=== PATIENT | male | born 1980 | race Caucasian/White ===

== ENCOUNTER 2017-03-15 13:43 | Observation (INO) | payer OTHER ==
[~2017-03-15] VITALS: Ht 193 cm; Wt 122.0 kg
[~2017-03-15 13:43] MED LIST: ACET-1311 PO; ALBU1AER9 INH; CLID5CAP PO; CLN150 PO; FLM4 PO; MAGN1TAB19 PO; MONT1TAB3 PO; OMEP40CA PO; TNR25 PO; VENL150T33 PO
[2017-03-15] MEDS ORDERED: VNTHFA/IN INH (15:03)
[2017-03-15] MEDS ORDERED: VENL75CA PO (15:03)
[2017-03-15] MEDS ORDERED: VENL150C PO (15:03)
[2017-03-15] MEDS ORDERED: DEXL60CA4 PO (15:03)
[2017-03-15] MEDS ORDERED: SULI200T4 PO (15:03)
[2017-03-15] MEDS ORDERED: ELUX1TAB2 PO (15:03)
[2017-03-15] MEDS ORDERED: CETITAB27 PO (15:03)
[2017-03-15] MEDS ORDERED: MAGN400T6 PO (15:03)
[2017-03-15 15:26] LABS: BASO % 0.4 %; BASO ABS # 0.04 K/uL (0-0.2); COMPLETE YES; EOS % 1.5 %; HEMATOCRIT 46.1 % (42-52); IG% 0.7 %; LYMPH % 27.4 %; LYMPH ABS # 2.74 K/uL (1.2-3.4); MEAN CELL VOLUME 93.9 fL (80-100); MEAN CORPUSCULAR HGB CONC 34.1 g/dl (32-36); MEAN PLATELET VOLUME 10.5 fL (7.4-10.4); MONO % 6.9 %; NEUT % 63.1 %; PLATELET COUNT 203 K/uL (130-400); RED BLOOD COUNT 4.91 M/uL (4.7-6.1)
--- NOTE | 2017-03-15 15:29 | EMERGENCY ROOM VISIT NOTE ---
History First contact with patient: 14:41 Chief Complaint: CHEST PAIN Stated Complaint: CHEST PAIN, SOB-CATHERIZATION SCHEDULED FOR 03/16 Nursing Triage Summary: Pt reports pain that "moves all around chest" since this morning. Dizzy, sob, "heart rate all over the place." Pt states scheduled for a cardiac cath tomorrow. Pt states head injury in 2013. History of Present Illness The patient is a 36 year old male who presents to the Emergency Room via private vehicle with complaints of "chest pain, shortness of breath test catheterization scheduled for 428". The patient has a history of TBI, and is believed to have autonomic dysfunction. He is scheduled for cardiac catheterization tomorrow at 7-[address] Gordillo the electrical inspector. The patient today woke up with increasing shortness of breath, and increasing heart rate with exertion. He was at physical therapy today, and he was found to be tachycardic at 135, and it would drop to 100 with his pulse ox to 90. He notes that with exertion today therapy his heart rate increased to 155 and 156. The patient states that he does not feel well, and is experiencing pain radiating into his neck. He has a headache, which is normal for him for the past 2-3 years. He follows in [place] for history of brain injury. It was found that he does have right ventricular enlargement, and is scheduled for the cardiac cath tomorrow for further evaluation and management of this. He does have a history of pulmonary embolism. The patient states an as verified by his , that earlier today he had trouble speaking, and when he went to walk around 11:30 AM he felt very weak in his legs, and very ill. The patient notes that he is also experiencing chest pain, that is worse with exertion. His heart rate also increases with exertion, but at times will decrease. He last ate today around 12:30 PM. Review of Systems A complete 10-point Review of Systems was discussed with the patient, with pertinent positives and negatives listed in the History of Present Illness. All remaining Review of Systems questions can be considered negative unless otherwise specified. Past Medical/Surgical History Medical Problems: (1) Acute bronchitis (2) Asthma (3) Chest pain (4) Intractable abdominal pain (5) Kidney stones (6) Lower GI bleed (7) Pneumonia (8) Pulmonary embolism Family History Cancer Diabetes mellitus Gallbladder disease Heart disease Hypertension Kidney stone Social History Smoking Status: Never Smoker Alcohol Use: none Drug Use: none Marital Status: Housing Status: lives with family Occupation Status: employed Current/Historical Medications Scheduled Atenolol (Atenolol), 25 TAB PO BID Dexlansoprazole (Dexilant), 60 MG PO QAM Eluxadoline (Viberzi), 100 MG PO BID Magnesium Oxide (Mag-Ox), 800 MG PO QPM Magnesium Oxide (Mg Supplement (Magnesium Oxide), 800 MG PO HS Montelukast Sodium (Singulair), 10 MG PO QAM Venlafaxine Hcl (Effexor Xr), 300 MG PO DAILY Venlafaxine Hcl (Effexor Xr), 75 MG PO DAILY Scheduled PRN Albuterol Hfa (Ventolin Hfa), 2 PUFFS INH Q6H PRN for SOB/Wheezing Cetirizine/Pseudoephedrine (Zyrtec-D Er 5MG/120MG), 1 TAB PO UD PRN for ALLERGIES Sulindac (Clinoril), 200 MG PO BID PRN for PRN Allergies Coded Allergies: Topiramate (Unverified Allergy, Unknown, UNKNOWN, 03/15/17) Valproic Acid (Verified Adverse Reaction, Unknown, ELEVATED LIVER ENZYMES , 03/15/17) Physical Exam Vital Signs Date Time Temp Pulse Resp B/P Pulse Ox O2 Delivery O2 Flow Rate FiO2 03/15/17 19:40 90 18 141/80 98 Room Air 03/15/17 18:23 136 98 Room Air 03/15/17 18:09 86 03/15/17 17:37 129/72 03/15/17 17:25 94 14 99 03/15/17 16:50 92 15 98 03/15/17 16:31 124/78 03/15/17 16:20 96 23 96 03/15/17 16:15 94 20 128/73 97 03/15/17 15:47 171/76 03/15/17 15:31 108/71 03/15/17 15:25 100 21 98 03/15/17 15:20 95 19 96 03/15/17 15:15 91 19 96 03/15/17 15:10 93 25 97 03/15/17 15:05 94 17 97 03/15/17 15:00 100 13 100 03/15/17 14:15 102 20 114/77 95 Room Air 03/15/17 14:15 96 Room Air 03/15/17 14:10 101 03/15/17 13:47 36.5 109 20 147/70 100 Room Air Physical Exam VITAL SIGNS - Vital signs and nursing notes were reviewed. Afebrile, hypertensive 147/70, tachycardic at a rate of 109 bpm and is saturating well on room air 100%. GENERAL -36-year-old male appearing his stated age who is in no acute distress. Communicates well with provider and answers questions appropriately. SKIN - Without rashes. No petechial rashes. HEAD - NC/AT. No evidence of trauma. EYES - PERRL with EOMI bilaterally. Sclera anicteric. Palpebral conjunctiva pink and moist with no injection noted. EARS - No deformities of external structures noted on gross examination bilaterally. No pain elicited with palpation of the tragus bilaterally. External auditory canals without discharge or otorrhea. Tympanic membranes pearly francois without retraction or bulging. No fluid or purulent material visualized behind the TM. Handle of malleus, umbo, cone of light, pars tensa/ flaccid all easily visualized. NOSE - Midline and without cyanosis. No epistaxis or purulent drainage noted. Septum midline without deviation or septal hematoma noted. MOUTH/OROPHARYNX - Without perioral cyanosis. Buccal mucosa pink and moist and without leukoplakia. Tongue midline with equal elevation of palate bilaterally. No tonsillar hypertrophy, erythema, or exudates noted. Fair dentition noted. NECK - Neck with FROM. Supple to palpation. No lymphadenopathy noted. No nuchal rigidity. No meningeal signs. LUNGS - Chest wall symmetric without accessory muscle use, intercostals retractions, or central cyanosis. Normal vesicular breath sounds CTA B/L. No wheezes, rales, or rhonchi appreciated. CARDIAC - RRR with S1/S2. No murmur, rubs, or gallops appreciated. ABDOMEN - Abdominal contour without pulsations or visible masses. BS normoactive all four quadrants. No tenderness, palpable masses, hepatosplenomegaly, or ascites noted. EXTREMITIES - No clubbing or peripheral cyanosis. No pretibial edema present. +5 /5 strength noted in UE/LE bilaterally. NEUROLOGIC - Cranial nerves II through XII grossly intact. Sensory intact to light touch throughout. PSYCH - A&Ox3 and cooperates fully with examiner. Pt is very pleasant and interacts well with examiner. Medical Decision & Procedures ER Provider Diagnostic Interpretation: CT HEAD WITHOUT CONTRAST (CT) CLINICAL HISTORY: Stroke COMPARISON STUDY: No previous studies for comparison. TECHNIQUE: Axial CT of the brain is performed from the vertex to the skull base. IV contrast was not administered for this examination. CT DOSE: 580.48 mGy.cm FINDINGS: No intra or extra-axial mass lesions are visualized. There is no CT evidence of acute cortical infarction. There is no evidence of midline shift. There is no acute hemorrhage. No calvarial fractures are visualized. And equivocal extra-axial cystic lesion at the level of the left pontomedullary junction, likely represents volume averaging artifact There is no evidence of pathologic ventricular dilatation. There is no evidence of acute sinusitis IMPRESSION: Probably normal noncontrast head CT. If symptoms persist, an MRI the brain should be considered in follow-up. CHEST ONE VIEW PORTABLE HISTORY: Dyspnea COMPARISON: Chest 02/05/2017. FINDINGS: No pneumothorax. There are low lung volumes. The heart is normal in size. Bibasilar linear densities favor subsegmental atelectasis. This is not significantly changed. Slight prominence of the perihilar interstitial markings. This could be technical. No new focal lung consolidations to suggest pneumonia. No evidence for pulmonary edema. IMPRESSION: No change from the prior study. Prominence of the perihilar interstitial markings may be technical. Electronically signed by: Ari Chavira M.D. 03/15/2017 3:48 PM Dictated Date/Time: 03/15/2017 3:[address] ANGIOGRAM OF THE CHEST CLINICAL HISTORY: Atypical chest pain. Shortness of breath. COMPARISON STUDY: 12/08/2015 TECHNIQUE: Following the IV administration of 98 mL of Optiray-320, CT angiogram of the thorax was performed from the thoracic inlet to the lung bases utilizing the pulmonary embolus protocol. Images are reviewed in the axial, sagittal, and coronal planes. IV contrast was administered without complication. MIP imaging was performed. CT DOSE: 770.91 mGy.cm FINDINGS: There are borderline enlarged mediastinal and hilar lymph nodes. There is also a borderline enlarged lymph node at the esophagogastric junction. The lymph nodes appear larger on the prior November 2015 study. It is therefore conceivable that they are pathologic. Follow-up is recommended. There was no evidence of thoracic aortic dilatation. There were no pulmonary artery filling defects to indicate acute pulmonary embolism. No pleural effusions are visualized. There was no evidence of focal pulmonary consolidation. IMPRESSION: 1. No CT evidence of acute pulmonary embolism 2. Interval development of multiple borderline enlarged mediastinal, hilar and axillary lymph nodes. Close follow-up is recommended as these nodes could be pathologic. 3. No evidence of focal pulmonary consolidation Electronically signed by: Bossman Mathis M.D. 03/15/2017 5:12 PM Dictated Date/Time: 03/15/2017 5:07 PM Laboratory Results 03/15/17 14:17 Red Blood Count 4.91, Mean Corpuscular Volume 93.9, Mean Corpuscular Hemoglobin 32.0, Mean Corpuscular Hemoglobin Concent 34.1, Mean Platelet Volume 10.5, Neutrophils (%) (Auto) 63.1, Lymphocytes (%) (Auto) 27.4, Monocytes (%) (Auto) 6.9, Eosinophils (%) (Auto) 1.5, Basophils (%) (Auto) 0.4, Neutrophils # (Auto) 6.31, Lymphocytes # (Auto) 2.74, Monocytes # (Auto) 0.69, Eosinophils # (Auto) 0.15, Basophils # (Auto) 0.04 03/15/17 14:17 Test 03/15/17 14:17 03/15/17 15:17 03/15/17 15:21 03/15/17 16:18 White Blood Count 10.00 K/uL (4.8-10.8) Red Blood Count 4.91 M/uL (4.7-6.1) Hemoglobin 15.7 g/dL (14.0-18.0) Hematocrit 46.1 % (42-52) Mean Corpuscular Volume 93.9 fL (80-100) Mean Corpuscular Hemoglobin 32.0 pg (25-34) Mean Corpuscular Hemoglobin Concent 34.1 g/dl (32-36) Platelet Count 203 K/uL (130-400) Mean Platelet Volume 10.5 fL (7.4-10.4) Neutrophils (%) (Auto) 63.1 % Lymphocytes (%) (Auto) 27.4 % Monocytes (%) (Auto) 6.9 % Eosinophils (%) (Auto) 1.5 % Basophils (%) (Auto) 0.4 % Neutrophils # (Auto) 6.31 K/uL (1.4-6.5) Lymphocytes # (Auto) 2.74 K/uL (1.2-3.4) Monocytes # (Auto) 0.69 K/uL (0.11-0.59) Eosinophils # (Auto) 0.15 K/uL (0-0.5) Basophils # (Auto) 0.04 K/uL (0-0.2) RDW Standard Deviation 45.3 fL (36.4-46.3) RDW Coefficient of Variation 13.1 % (11.5-14.5) Immature Granulocyte % (Auto) 0.7 % Immature Granulocyte # (Auto) 0.07 K/uL (0.00-0.02) Prothrombin Time 10.3 SECONDS (9.0-12.0) Prothromb Time International Ratio 1.0 (0.9-1.1) Activated Partial Thromboplast Time 25.7 SECONDS (21.0-31.0) Partial Thromboplastin Ratio 1.0 Anion Gap 4.0 mmol/L (3-11) Est Creatinine Clear Calc Drug Dose 107.2 ml/min Estimated GFR () 75.4 Estimated GFR (Non- 65.1 BUN/Creatinine Ratio 7.5 (10-20) Calcium Level 9.2 mg/dl (8.5-10.1) Creatine Kinase MB 1.7 ng/ml (0.5-3.6) Creatine Kinase MB Ratio 0.3 (0-3.0) Bedside Troponin I 0.010 ng/ml (0-0.045) JG-Jms-N-Type Natriuretic Peptide < 15 pg/ml (0-450) Bedside Glucose 100 mg/dl (70-99) Urine Color YELLOW Urine Appearance CLEAR (CLEAR) Urine pH 7.0 (4.5-7.5) Urine Specific [place] 1.011 (1.000-1.030) Urine Protein NEG (NEG) Urine Glucose (UA) NEG (NEG) Urine Ketones NEG (NEG) Urine Occult Blood NEG (NEG) Urine Nitrite NEG (NEG) Urine Bilirubin NEG (NEG) Urine Urobilinogen NEG (NEG) Urine Leukocyte Esterase NEG (NEG) Urine Opiates Screen NEG (NEG) Urine Methadone, Qualitative NEG (NEG) Urine Barbiturates NEG (NEG) Urine Phencyclidine (PCP) Level NEG (NEG) Ur Amphetamine/Methamphetamine NEG (NEG) MDMA (Ecstasy) Screen NEG (NEG) Urine Benzodiazepines Screen POS (NEG) Urine Cocaine Metabolite NEG (NEG) Urine Marijuana (THC) NEG (NEG) Medications Administered Medications (Trade) Dose Ordered Sig/[place]asta Route Start Time Stop Time Status Last Admin Dose Admin Acetaminophen (Tylenol Tab) 500 mg NOW STAT PO 03/15/17 16:06 03/15/17 16:07 DC 03/15/17 16:13 500 MG Diphenhydramine HCl (Benadryl Inj) 25 mg NOW STAT IV 03/15/17 18:02 03/15/17 18:03 DC 03/15/17 19:34 25 MG Prochlorperazine Edisylate (Compazine Inj) 10 mg NOW STAT IV 03/15/17 18:02 03/15/17 18:03 DC 03/15/17 19:34 10 MG Acetaminophen (Tylenol Tab) 500 mg NOW STAT PO 03/15/17 18:02 03/15/17 18:03 DC 03/15/17 18:02 500 MG Medical Decision Patient was seen and evaluated as above. After obtaining a thorough history and physical examination IV access was initiated and the above workup was performed. There is concern because the patient and relate that he had sudden onset of lower extremity weakness/generalized body weakness, followed by speech troubles earlier with a history of TBI. He also is experiencing chest pain and shortness of breath. He is scheduled for a right sided cath tomorrow at 7 AM. Because of the TBI, and sudden onset of body weakness, headache as well as speech troubles I was concerned for potential stroke earlier in the day therefore did initiate a stroke workup. Emergency department as well as emergent cardiac and pulmonary causes. His cases were reviewed extensively from the past. He was noted to be tachycardic here, shortness of breath. Concern was for WA as well as PE initially. He did request something for pain, and declined IV morphine. He requested Tylenol. He was given 500 mg of Tylenol. He was reevaluated and the headache was worsening even after the CT scan of the head which revealed questionable artifact versus abnormality. He was then given Benadryl and Compazine, as the patient noted that he has had good relief of his headache with this in the past. I do this is a reasonable medication to provide him at this time. I do not believe an MRI needs to be performed in the emergency department, but did tell the patient that if symptoms persisted and MRI the brain may be warranted however he he have these as he follows up in [place] for the TBI. As noted, CT scan of the head does reveal a small questionable abnormality which was thoroughly discussed with the patient. This I do not believe is causing his symptoms at this time. I believe this is incidental. CBC reveals no leukocytosis or anemia. Coags within normal limits. PRP reveals normal electrolytes, total creatinine was elevated at 498. Troponin was 0.01. BNP is negative. Urine is unremarkable. Urine toxicology is positive for urine benzodiazepines. Chest x- ray does not reveal any significant abnormality however the patient does appear to be experiencing persistent tachycardia, with shortness of breath with minimal exertion. Benefits versus risk of obtaining a CTA of the chest was discussed with the patient, and the patient noted that he had had negative d- dimer is in the past yet had a pulmonary embolism history. I do believe that this time that the benefit of obtaining the scan outweighs the risk. CT scan results as above. Patient does have enlargement of lymph nodes of which she will need to be followed up for. Patient follows with Dr. Antunez. At this time his EKG does reveal a normal sinus rhythm rate of 92 bpm without ectopy or ischemic change. This was compared to EKG performed on December 08 no significant change was found. Because of the patient's persistent chest pain, dyspnea as well as he had 1 syncopal event here according to staff as well as had an episode of his tongue becoming rigid followed by his neck, and he is scheduled for early cardiac catheterization tomorrow I do believe that further evaluation and management overnight is warranted for his chest pain with continuation of a heart cath tomorrow. I did discuss the case with my attending , and subsequently the hospitalist. Please refer to further documentation regarding his stay. In evaluation treatment this patient the following differential diagnoses were entertained: WA, PE, TBI sequela, pericarditis, pneumonia, pneumothorax, hemothorax, lung cancer, among others. Impression Primary Impression: Chest pain Additional Impressions: Shortness of breath extra-axial cystic lesion at the level of the left pontomedullary on CT Departure Information Dispostion Admitted as an inpatient Condition FAIR Referrals Bhaskar Noble D.O. (PCP) Patient Instructions My [facility] Problem Qualifiers
[2017-03-15 15:36] LABS: PROTHROMBIN TIME (PATIENT) 10.3 SECONDS (9.0-12.0)
[2017-03-15 15:37] LABS: POINT OF CARE PRO-BNP < 15 pg/ml (0-450)
[2017-03-15 15:38] LABS: BUN/CREATININE RATIO 7.5 (10-20); CALCIUM 9.2 mg/dl (8.5-10.1); CREATININE 1.4 mg/dl (0.60-1.40); POTASSIUM 3.8 mmol/L (3.5-5.1)
[2017-03-15 15:42] LABS: CKMB/CK RATIO 0.3 (0-3.0)
--- NOTE | 2017-03-15 15:49 | DIAGNOSTIC IMAGING REPORT ---
CHEST ONE VIEW PORTABLE HISTORY: Dyspnea COMPARISON: Chest 02/05/2017. FINDINGS: No pneumothorax. There are low lung volumes. The heart is normal in size. Bibasilar linear densities favor subsegmental atelectasis. This is not significantly changed. Slight prominence of the perihilar interstitial markings. This could be technical. No new focal lung consolidations to suggest pneumonia. No evidence for pulmonary edema. IMPRESSION: No change from the prior study. Prominence of the perihilar interstitial markings may be technical. Electronically signed by: Ari Chavira M.D. 03/15/2017 3:48 PM Dictated Date/Time: 03/15/2017 3:45 PM
[2017-03-15] MEDS ORDERED: ACETAMINOPHEN 500 MG TAB PO STA ×2 (16:06→18:02)
--- NOTE | 2017-03-15 16:12 | DIAGNOSTIC IMAGING REPORT ---
CT HEAD WITHOUT CONTRAST (CT) CLINICAL HISTORY: Stroke COMPARISON STUDY: No previous studies for comparison. TECHNIQUE: Axial CT of the brain is performed from the vertex to the skull base. IV contrast was not administered for this examination. CT DOSE: 580.48 mGy.cm FINDINGS: No intra or extra-axial mass lesions are visualized. There is no CT evidence of acute cortical infarction. There is no evidence of midline shift. There is no acute hemorrhage. No calvarial fractures are visualized. And equivocal extra-axial cystic lesion at the level of the left pontomedullary junction, likely represents volume averaging artifact There is no evidence of pathologic ventricular dilatation. There is no evidence of acute sinusitis IMPRESSION: Probably normal noncontrast head CT. If symptoms persist, an MRI the brain should be considered in follow-up. Electronically signed by: Bossman Mathis M.D. 03/15/2017 4:11 PM Dictated Date/Time: 03/15/2017 4:07 PM
[2017-03-15 16:30] LABS: URINE APPEARANCE CLEAR (CLEAR); URINE BILIRUBIN NEG (NEG); URINE COLOR YELLOW; URINE NITRITE NEG (NEG); URINE SPECIFIC GRAVITY 1.011 (1.000-1.030); UROBILINOGEN NEG (NEG); ZZUR CULT IF INDIC CLEAN CATCH NO
[2017-03-15 16:32] LABS: MANUAL MICROSCOPIC REQUIRED? NO; REVIEW REQ? NO
[2017-03-15] MEDS ORDERED: OPTIRAY 320 IV PRN (16:45)
--- NOTE | 2017-03-15 17:13 | DIAGNOSTIC IMAGING REPORT ---
CT ANGIOGRAM OF THE CHEST CLINICAL HISTORY: Atypical chest pain. Shortness of breath. COMPARISON STUDY: 12/08/2015 TECHNIQUE: Following the IV administration of 98 mL of Optiray-320, CT angiogram of the thorax was performed from the thoracic inlet to the lung bases utilizing the pulmonary embolus protocol. Images are reviewed in the axial, sagittal, and coronal planes. IV contrast was administered without complication. MIP imaging was performed. CT DOSE: 770.91 mGy.cm FINDINGS: There are borderline enlarged mediastinal and hilar lymph nodes. There is also a borderline enlarged lymph node at the esophagogastric junction. The lymph nodes appear larger on the prior November 2015 study. It is therefore conceivable that they are pathologic. Follow-up is recommended. There was no evidence of thoracic aortic dilatation. There were no pulmonary artery filling defects to indicate acute pulmonary embolism. No pleural effusions are visualized. There was no evidence of focal pulmonary consolidation. IMPRESSION: 1. No CT evidence of acute pulmonary embolism 2. Interval development of multiple borderline enlarged mediastinal, hilar and axillary lymph nodes. Close follow-up is recommended as these nodes could be pathologic. 3. No evidence of focal pulmonary consolidation Electronically signed by: Bossman Mathis M.D. 03/15/2017 5:12 PM Dictated Date/Time: 03/15/2017 5:07 PM
[2017-03-15 17:15] LABS: BENZODIAZEPINE, URINE POS (NEG); COCAINE,URINE NEG (NEG); PHENCYCLIDINE, URINE NEG (NEG)
[2017-03-15] MEDS ORDERED: PROCHLORPERAZINE 5 MG/ML 2 ML VIAL IV STA (18:02)
[2017-03-15] MEDS ORDERED: DiphenhydrAMINE HCL 50 MG/ML VIAL IV STA (18:02)
[2017-03-15 19:58] VITALS: BP 130/74; PULSE 80; TEMP 37.2; O2SAT 98; Ht 193 cm; Wt 122.0 kg
[2017-03-15] MEDS ORDERED: NITROGLYCERIN 0.4 MG SL PER TAB CHARGE SL PRN (20:00)
[2017-03-15] MEDS ORDERED: MAGNESIUM HYDROXIDE SUSP 30 ML UDC PO PRN (20:00)
[2017-03-15] MEDS ORDERED: HEPARIN SOD 5000 UNIT/0.5 ML CARP SQ SCH (20:00)
[2017-03-15] MEDS ORDERED: POLYETHYLENE (MIRALAX) 17 GM PACK PO PRN (20:00)
[2017-03-15] MEDS ORDERED: ALUMINUM/MAGNESIUM/SIMETH (MAALOX MAX) 30 ML UDC PO PRN (20:00)
[2017-03-15] MEDS ORDERED: ONDANSETRON INJ 2 MG/ML 2 ML VIAL IV PRN (20:00)
[2017-03-15] MEDS ORDERED: ACETAMINOPHEN 325 MG TAB PO PRN (20:00)
[2017-03-15] MEDS ORDERED: ALBUTEROL HFA 8 GM INHALER INH PRN (20:00)
--- NOTE | 2017-03-15 20:23 | History and Physical ---
History & Physical Date & Time of Service: Mar 15, 2017 at 20:08 Chief Complaint: Chest Pain, Sob-Catherization Scheduled For 03/16 Primary Care Physician: Bhaskar Noble D.O. History of Present Illness Source: patient 37 y/o M w/Hx TBI, autonomic dysfunction, chronic chest discomfort and SOB. For 3 years he has had episodes of tachycardia associated with chest pain and light headedness. He regularly becomes SOB with exertion and states that his heart rate increases out of proportion to his degree of activity. He feels as though his symptoms are occuring with greater severity and frequency. He has had a normal stress test in the past. The pt was scheduled for an elective R and L heart cath 03/16. He was having worsening discomfort and arrived at the ER therefore. As he is having active symptoms and is scheduled for an AM cath, this will be performed in the inpatient setting and he will be observed overnight on telemetry. Past Medical/Surgical History Medical Problems: (1) Acute bronchitis Status: Resolved (2) Asthma Status: Chronic (3) Kidney stones Status: Resolved (4) Lower GI bleed Status: Resolved (5) Pneumonia Status: Resolved (6) Pulmonary embolism Status: Resolved 7) TBI 8) Autonomic dysfunction Family History Cancer Diabetes mellitus Gallbladder disease Heart disease Hypertension Kidney stone Social History Smoking Status: Never Smoker Drug Use: none Marital Status: Occupational Status: employed Allergies Coded Allergies: Topiramate (Unverified Allergy, Unknown, UNKNOWN, 03/15/17) Valproic Acid (Verified Adverse Reaction, Unknown, ELEVATED LIVER ENZYMES , 03/15/17) Home Medications Scheduled Atenolol (Atenolol), 25 TAB PO BID Dexlansoprazole (Dexilant), 60 MG PO QAM Eluxadoline (Viberzi), 100 MG PO BID Magnesium Oxide (Mag-Ox), 800 MG PO QPM Magnesium Oxide (Mg Supplement (Magnesium Oxide), 800 MG PO HS Montelukast Sodium (Singulair), 10 MG PO QAM Venlafaxine Hcl (Effexor Xr), 300 MG PO DAILY Venlafaxine Hcl (Effexor Xr), 75 MG PO DAILY Scheduled PRN Albuterol Hfa (Ventolin Hfa), 2 PUFFS INH Q6H PRN for SOB/Wheezing Cetirizine/Pseudoephedrine (Zyrtec-D Er 5MG/120MG), 1 TAB PO UD PRN for ALLERGIES Sulindac (Clinoril), 200 MG PO BID PRN for PRN Review of Systems Constitutional: No chills, No fever, No sweats Eyes: No eye pain, No worsening of vision ENT: No hearing loss, No nasal symptoms, No unusual epistaxis Respiratory: + dyspnea at rest, + dyspnea on exertion, + shortness of breath, No cough, No sputum, No wheezing Cardiovascular: + chest pain, + palpitations, No PND, No edema, No orthopnea Abdomen: No nausea, No pain, No vomiting Musculoskeletal: No joint pain, No muscle pain Genitourinary - Male: No dysuria, No hematuria, No urinary frequency, No urinary urgency Neurologic: + problem reported (light headed with CP or tachycardia), No memory loss, No paralysis, No weakness Psychiatric: No depression symptoms Endocrine: No fatigue Hematologic / Lymphatic: No abnormal bleeding/bruising Integumentary: No rash Allergic / Immunologic: No environmental allergies Physical Exam Vital Signs Date Time Temp Pulse Resp B/P Pulse Ox O2 Delivery O2 Flow Rate FiO2 03/15/17 18:23 136 98 Room Air 03/15/17 18:09 86 03/15/17 17:37 129/72 03/15/17 17:25 94 14 99 03/15/17 16:50 92 15 98 03/15/17 16:31 124/78 03/15/17 16:20 96 23 96 03/15/17 16:15 94 20 128/73 97 03/15/17 15:47 171/76 03/15/17 15:31 108/71 03/15/17 15:25 100 21 98 03/15/17 15:20 95 19 96 03/15/17 15:15 91 19 96 03/15/17 15:10 93 25 97 03/15/17 15:05 94 17 97 03/15/17 15:00 100 13 100 03/15/17 14:15 102 20 114/77 95 Room Air 03/15/17 14:15 96 Room Air 03/15/17 14:10 101 03/15/17 13:47 36.5 109 20 147/70 100 Room Air General Appearance: WD/WN, no apparent distress Head: normocephalic, atraumatic Eyes: normal inspection, EOMI ENT: normal ENT inspection, pharynx normal Neck: supple, no JVD Respiratory/Chest: chest non-tender, lungs clear, normal breath sounds, no respiratory distress, no accessory muscle use Cardiovascular: regular rate, rhythm, no edema, no gallop, no JVD, no murmur, normal peripheral pulses Abdomen/GI: normal bowel sounds, non tender, soft Back: normal inspection, no CVA tenderness, no muscle spasm Extremities/Musculoskelatal: normal inspection, no calf tenderness, normal capillary refill, no pedal edema, normal range of motion 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, no motor/sensory deficits, alert, normal mood/affect, normal reflexes, oriented x 3 Skin: normal color, warm/dry, no rash Diagnostics Laboratory Results Results Past 24 Hours Test 03/15/17 14:17 03/15/17 15:17 03/15/17 15:21 03/15/17 16:18 Range/Units White Blood Count 10.00 4.8-10.8 K/uL Red Blood Count 4.91 4.7-6.1 M/uL Hemoglobin 15.7 14.0-18.0 g/dL Hematocrit 46.1 42-52 % Mean Corpuscular Volume 93.9 80-100 fL Mean Corpuscular Hemoglobin 32.0 25-34 pg Mean Corpuscular Hemoglobin Concent 34.1 32-36 g/dl Platelet Count 203 130-400 K/uL Mean Platelet Volume 10.5 7.4-10.4 fL Neutrophils (%) (Auto) 63.1 % Lymphocytes (%) (Auto) 27.4 % Monocytes (%) (Auto) 6.9 % Eosinophils (%) (Auto) 1.5 % Basophils (%) (Auto) 0.4 % Neutrophils # (Auto) 6.31 1.4-6.5 K/uL Lymphocytes # (Auto) 2.74 1.2-3.4 K/uL Monocytes # (Auto) 0.69 0.11-0.59 K/uL Eosinophils # (Auto) 0.15 0-0.5 K/uL Basophils # (Auto) 0.04 0-0.2 K/uL RDW Standard Deviation 45.3 36.4-46.3 fL RDW Coefficient of Variation 13.1 11.5-14.5 % Immature Granulocyte % (Auto) 0.7 % Immature Granulocyte # (Auto) 0.07 0.00-0.02 K/uL Prothrombin Time 10.3 9.0-12.0 SECONDS Prothromb Time International Ratio 1.0 0.9-1.1 Activated Partial Thromboplast Time 25.7 21.0-31.0 SECONDS Partial Thromboplastin Ratio 1.0 Sodium Level 141 136-145 mmol/L Potassium Level 3.8 3.5-5.1 mmol/L Chloride Level 105 98-107 mmol/L Carbon Dioxide Level 32 21-32 mmol/L Anion Gap 4.0 3-11 mmol/L Blood Urea Nitrogen 10 7-18 mg/dl Creatinine 1.40 0.60-1.40 mg/dl Est Creatinine Clear Calc Drug Dose 107.2 ml/min Estimated GFR () 75.4 Estimated GFR (Non- 65.1 BUN/Creatinine Ratio 7.5 10-20 Random Glucose 91 70-99 mg/dl Calcium Level 9.2 8.5-10.1 mg/dl Total Creatine Kinase 498 39-308 U/L Creatine Kinase MB 1.7 0.5-3.6 ng/ml Creatine Kinase MB Ratio 0.3 0-3.0 Bedside Troponin I 0.010 0-0.045 ng/ml [id number] Natriuretic Peptide < 15 0-450 pg/ml Bedside Glucose 100 70-99 mg/dl Urine Color YELLOW Urine Appearance CLEAR CLEAR Urine pH 7.0 4.5-7.5 Urine Specific [place] 1.011 1.000-1.030 Urine Protein NEG NEG Urine Glucose (UA) NEG NEG Urine Ketones NEG NEG Urine Occult Blood NEG NEG Urine Nitrite NEG NEG Urine Bilirubin NEG NEG Urine Urobilinogen NEG NEG Urine Leukocyte Esterase NEG NEG Urine Opiates Screen NEG NEG Urine Methadone, Qualitative NEG NEG Urine Barbiturates NEG NEG Urine Phencyclidine (PCP) Level NEG NEG Ur Amphetamine/Methamphetamine NEG NEG MDMA (Ecstasy) Screen NEG NEG Urine Benzodiazepines Screen POS NEG Urine Cocaine Metabolite NEG NEG Urine Marijuana (THC) NEG NEG Diagnostic Radiology CTA 1. No CT evidence of acute pulmonary embolism 2. Interval development of multiple borderline enlarged mediastinal, hilar and axillary lymph nodes. Close follow-up is recommended as these nodes could be pathologic. 3. No evidence of focal pulmonary consolidation Normal EKG Impression Assessment and Plan 37 y/o M w/Hx TBI, autonomic dysfunction, chronic chest discomfort and SOB. For 3 years he has had episodes of tachycardia associated with chest pain and light headedness. He regularly becomes SOB with exertion and states that his heart rate increases out of proportion to his degree of activity. He feels as though his symptoms are occuring with greater severity and frequency. He has had a normal stress test in the past. The pt was scheduled for an elective R and L heart cath 03/16. He was having worsening discomfort and arrived at the ER therefore. As he is having active symptoms and is scheduled for an AM cath, this will be performed in the inpatient setting and he will be observed overnight on telemetry. 1) CP, palpitations, SOB - intermittent for 3 years - worsening Dr Gordillo consulted and will perform R and L cath in AM. Initial EKG is not consistent with ischemia and pt is thus far exhibiting a NSR on monitor. His CK is elevated however trop is WNL. We will provide IVF and repeat both in a few hours. One dose Heparin and ASA also provided. Judging by his symptoms he may benefit from an EP study eventually. He is receiving 25mg Atenolol daily. 2) SOB - occurs with exertion - will likely be evaluated for pulmonary hypertension on AM cath. Cont PRN albuterol. Full code - Heparin prophylaxis - total time for this admit including review of labs, meds, EKG, records - discussion with PT and ER attending 36 min Level of Care Telemetry Advanced Directives Existing Living Will: No Existing Power of Electric Mule Operator: No Resuscitation Status FULL RESUSCITATION VTE Prophylaxis VTE Risk Assessment Done? Y/N: Yes Risk Level: Low Given or contraindicated: Unfractionated heparin SQ
[2017-03-15] MEDS ORDERED: IV FLUIDS COMPLETED PRN (20:30)
[2017-03-15 20:45] VITALS: BP 130/74; PULSE 80; TEMP 37.2; O2SAT 98
[2017-03-15 21:00] VITALS: O2SAT 98
[2017-03-15] MEDS ORDERED: MAGNESIUM OXIDE 400 MG TAB PO SCH (21:00)
[2017-03-15] MEDS: NSS + 20MEQ KCL 1000ML 1,000 ML IV SCH (21:46)
[2017-03-15 23:52] VITALS: BP 116/65; PULSE 81; TEMP 36.9; O2SAT 96
[2017-03-16] VITALS (10 sets, daily range): BP systolic 103–119; BP diastolic 61–70; PULSE 68–88; TEMP 36.7–36.8; O2SAT 95–97
[2017-03-16] MEDS: NSS + 20MEQ KCL 1000ML 1,000 ML IV SCH (04:00)
[2017-03-16] MEDS ORDERED: NiCARDipine HCL INJ 2.5 MG/ML 10 ML AMP ONE (07:54)
[2017-03-16] MEDS ORDERED: FENTANYL CITRATE INJ 50 MCG/1 ML 2 ML VIAL ONE (07:55)
[2017-03-16] MEDS ORDERED: MIDAZOLAM HCL 1 MG/ML 2ML VIAL ONE ×2 (07:55→09:00)
[2017-03-16] MEDS ORDERED: HEPARIN SOD (PORCINE) 1000 UNIT/ML 10 ML VIAL ONE (07:55)
[2017-03-16] MEDS ORDERED: NITROGLYCERIN/D5W 100MCG/ML 20ML SYR ONE (07:56)
[2017-03-16] MEDS ORDERED: ASPIRIN 81 MG ECTAB PO SCH (09:00)
[2017-03-16] MEDS ORDERED: VENLAFAXINE HCL XR 150 MG CAPXR PO SCH (09:00)
[2017-03-16] MEDS ORDERED: VENLAFAXINE HCL XR 75 MG CAPXR PO SCH (09:00)
[2017-03-16] MEDS ORDERED: MONTELUKAST SOD 10 MG TAB PO SCH (09:00)
[2017-03-16] MEDS ORDERED: PANTOprazole SOD 40 MG TAB PO SCH (09:00)
--- NOTE | 2017-03-16 09:01 | CARDIOLOGY CONSULTATION ---
DATE OF CONSULTATION: 03/16/2017 REASON FOR CONSULTATION: Chest pain, shortness of breath. CONSULTATION REQUESTED BY: Dr. Galarza. HISTORY OF PRESENT ILLNESS: Mr. Angeles is a 36-year-old man with a history of traumatic brain injury with associated autonomic dysfunction including recurrent GI issues, prior PE in the setting of trauma, asthma, who was admitted with worsening shortness of breath and chest pain. The patient is followed by Dr. Antunez of pulmonary as an outpatient. He had been seeing him for episodes of hypoxia/desaturations on pulse ox in the setting of intermittent shortness of breath. He had undergone extensive workup which included a CTA which was negative except for some mild pulmonary nodules, V/Q scan which was negative for PE, a stress echo which was negative for significant ischemia. Next in his evaluation, the patient was to get a right heart catheterization today to further evaluate for possible pulmonary hypertension. Prior to that, yesterday he had recurrent episodes of similar chest pain and shortness of breath. These episodes all seemed to occur with exertion. He states he will start walking and he will acutely feel short of breath with some substernal right-sided chest pain. The pain can persist into rest. It is associated with palpitations and he states that his heart rate quickly jumps up when he begins exercising from normal up to the 120s, sometimes to the 150s. As a result of worsening symptoms, he presented to the ED yesterday. He was hemodynamically stable and satting at 100% on room air. He had no significant EKG changes. His troponins were negative overnight. A CTA of his chest was negative and a head CT was unremarkable. PAST MEDICAL HISTORY: 1. Traumatic brain injury. 2. Autonomic dysfunction with diarrhea and GI issues. 3. Prior kidney stones. 4. Pulmonary embolism in the setting of trauma. 5. Questionable GI bleed in the past. 6. History of prior pneumonia. 7. Asthma. 8. Allergic rhinitis. FAMILY HISTORY: No first-degree relatives with significant coronary artery disease. He has 5 brothers on his dad's side who all had coronary artery disease at young age including 1 brother who at age 38 from an [place]. SOCIAL HISTORY: He is a lifelong never smoker. He is . 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 Denies any significant alcohol or illicit drug use. ALLERGIES: HE IS ALLERGIC TO TOPAMAX AND VALPROIC ACID. HOME MEDICATIONS: Include atenolol 25 mg p.o. b.i.d., Dexilant, Viberzi, magnesium oxide, Singulair and venlafaxine. REVIEW OF SYSTEMS: Ten-point review of systems completed and otherwise negative other than listed in the HPI. PHYSICAL EXAMINATION: VITAL SIGNS: Temperature 36.7, pulse 76, blood pressure 119/70, satting 97% on room air. GENERAL: The patient appears comfortable, in no acute distress. HEENT: Sclerae are anicteric. Oropharynx is clear. Mucous membranes are moist. NECK: Supple. He has no lymphadenopathy. LUNGS: Clear to auscultation bilaterally. HEART: Regular rate and rhythm with no murmurs, rubs or gallops. ABDOMEN: Soft, nontender, nondistended, with positive bowel sounds. EXTREMITIES: Warm. He has no significant lower extremity edema. He has intact distal pulses including 2+ radial pulses bilaterally. SKIN: Shows no rashes or lesions. PSYCHIATRIC: He is alert and oriented and appropriate. LABORATORY DATA: White blood cell count 10, hemoglobin 15.7, platelets 203. INR 1.0. Sodium 141, potassium 3.8, BUN 10, creatinine of 1.4. NT-proBNP was less than 15. Two troponins were negative, less than 0.015. UA unremarkable. Urine drug screen positive only for benzodiazepines. IMAGING: Chest x-ray showed prominence of perihilar interstitial markings, but no acute cardiopulmonary process. Chest CTA showed no evidence of acute PE. There was borderline enlargement of mediastinal, hilar and axillary lymph nodes. No focal pulmonary consolidation. Head CT showed a probably normal noncontrast head CT. Prior cardiac workup included stress echo done on 02/05/2017 at [facility]. The patient exercised for 6 minutes, achieving a heart rate of 174, 94% of maximum predicted heart rate and 7 METs. He had no exercise-induced ST abnormalities. His LV was mildly thickened, but he had a preserved LV function with an EF of 60% at rest. He had an appropriate augmentation of LV function with stress and no regional wall motion abnormalities. EKG yesterday showed normal sinus rhythm with no significant ST abnormalities. IMPRESSION AND PLAN: 1. Atypical chest pain, periods of hypoxia. 2. Prior traumatic brain injury. 3. Palpitations. 4. Morbid obesity. 5. Family history of coronary artery disease in nonfirst-degree relatives. Mr. Angeles is here with repeated episodes of atypical chest pain and hypoxic episodes in the setting of palpitations. He has undergone extensive pulmonary workup thus far with Dr. Antunez, which has been largely unremarkable. Plan had been for right heart catheterization to evaluate for pulmonary hypertension today in the setting of previous PE. As the patient continues to have episodes of chest pain requiring him to be admitted overnight, feel that further evaluation is likely warranted of his coronary arteries and we will plan to proceed with right and left heart catheterization today. Further recommendations pending findings of this test. Assuming if tests unremarkable, may need additional ambulatory monitoring to evaluate for arrhythmia. Thank you for allowing us to participate in the care of this patient. Please contact with any questions.
--- NOTE | 2017-03-16 09:30 | Procedure Note ---
Pre-Mod Sedation Assessment General Date of Moderate Sedation: Mar 16, 2017. Vital Signs: Vital Signs Past 12 Hours Date Time Temp Pulse Resp B/P Pulse Ox O2 Delivery O2 Flow Rate FiO2 03/16/17 09:20 72 16 111/73 96 Nasal Cannula 3 03/16/17 07:25 Room Air 03/16/17 04:00 Room Air 03/16/17 03:48 36.7 76 22 119/70 97 Room Air 03/16/17 00:01 Room Air 03/15/17 23:52 36.9 81 22 116/65 96 Room Air Review Cardiovascular: regular rate, rhythm, no edema Abdomen: normal bowel sounds, non tender, soft Lungs: chest non-tender, lungs clear, normal breath sounds Airway Class: III Pre-Sedation Airway Assessment Oral Cavity: WNL Able to Visualize Vocal Cords: No Short Thick Neck: Yes Hx of Sleep Apnea: No Smoking Status: Never Smoker Mallampati Classification: Class III ASA Classification: Class II Procedure Planning Contraindications-for Mod Sed: None Yes Notes The planned sedation has been discussed with the patient and consent obtained. I have identified the patient, determined the appropriateness of sedation and have assessed the patient immediately prior to the procedure. All medicine(s) and interventions are by my order.
--- NOTE | 2017-03-16 09:31 | Procedure Note ---
Post-Mod Sedation Assessment General Date of Moderate Sedation Mar 16, 2017. Vital Signs: Vital Signs Past 12 Hours Date Time Temp Pulse Resp B/P Pulse Ox O2 Delivery O2 Flow Rate FiO2 03/16/17 09:20 72 16 111/73 96 Nasal Cannula 3 03/16/17 07:25 Room Air 03/16/17 04:00 Room Air 03/16/17 03:48 36.7 76 22 119/70 97 Room Air 03/16/17 00:01 Room Air 03/15/17 23:52 36.9 81 22 116/65 96 Room Air Review - Discharge Criteria Vital Signs Stable: Yes Alert/Oriented/Conversant: Yes Returned to Baseline Mental St: Yes Pain/Discomfort/Absent/Minimal: Yes Normal/Baseline Respirations: Yes Active Bleeding?: No Pt Received D/C Instructions: N/A Prescriptions Given: None Specific Proced. D/C Criteria Distal Pulses Present (Cardiac: Yes Groin site assessed-Card Cath: N/A Discharged Patients Adult Escort/Transportation: Yes
[2017-03-16] MEDS: MoRPHine SULFATE 2 MG/ML CARP IV PRN ×4 (09:58→12:31)
[2017-03-16] MEDS ORDERED: NURSING VERBAL MED ORDER ONE ×2 (10:45→11:00)
[2017-03-16] MEDS ORDERED: DiphenhydrAMINE HCL 50 MG/ML VIAL IV SCH (11:10)
[2017-03-16 11:36] LABS: ISTAT ARTERIAL BLOOD GAS HCO3 24 meq/L (19-24); ISTAT ARTERIAL BLOOD GAS PCO2 46 mmHg (35-46); ISTAT ARTERIAL BLOOD GAS PO2 < 32 mmHg (80-95); ISTAT ARTERIAL BLOOD GAS pH 7.32 (7.35-7.45); ISTAT CARBON DIOXIDE 25 mEq/l (24-31)
[2017-03-16 11:36] LABS: ISTAT ARTERIAL BLOOD GAS HCO3 24 meq/L (19-24); ISTAT ARTERIAL BLOOD GAS PCO2 47 mmHg (35-46); ISTAT ARTERIAL BLOOD GAS PO2 < 32 mmHg (80-95); ISTAT ARTERIAL BLOOD GAS pH 7.32 (7.35-7.45); ISTAT CARBON DIOXIDE 26 mEq/l (24-31)
[2017-03-16 11:36] LABS: ISTAT ARTERIAL BLOOD GAS HCO3 25 meq/L (19-24); ISTAT ARTERIAL BLOOD GAS PCO2 44 mmHg (35-46); ISTAT ARTERIAL BLOOD GAS PO2 33 mmHg (80-95); ISTAT ARTERIAL BLOOD GAS pH 7.36 (7.35-7.45); ISTAT CARBON DIOXIDE 26 mEq/l (24-31)
[2017-03-16 11:36] LABS: ISTAT ARTERIAL BLOOD GAS HCO3 24 meq/L (19-24); ISTAT ARTERIAL BLOOD GAS PCO2 45 mmHg (35-46); ISTAT ARTERIAL BLOOD GAS PO2 < 32 mmHg (80-95); ISTAT ARTERIAL BLOOD GAS pH 7.34 (7.35-7.45); ISTAT CARBON DIOXIDE 25 mEq/l (24-31)
[2017-03-16 11:36] LABS: ISTAT ARTERIAL BLOOD GAS HCO3 24 meq/L (19-24); ISTAT ARTERIAL BLOOD GAS PCO2 44 mmHg (35-46); ISTAT ARTERIAL BLOOD GAS PO2 < 32 mmHg (80-95); ISTAT ARTERIAL BLOOD GAS pH 7.34 (7.35-7.45); ISTAT CARBON DIOXIDE 25 mEq/l (24-31)
[2017-03-16 11:36] LABS: ISTAT ARTERIAL BLOOD GAS HCO3 24 meq/L (19-24); ISTAT ARTERIAL BLOOD GAS PCO2 45 mmHg (35-46); ISTAT ARTERIAL BLOOD GAS PO2 33 mmHg (80-95); ISTAT ARTERIAL BLOOD GAS pH 7.34 (7.35-7.45); ISTAT CARBON DIOXIDE 25 mEq/l (24-31)
--- NOTE | 2017-03-16 13:41 | Progress Note ---
Subjective Date of Service: Mar 16, 2017. Subjective Pt evaluation today including: conversation w/ patient, conversation w/ family , physical exam, chart review, lab review, review of studies, conversation w/ bus info consultant, review of inpatient medication list Complaining of right arm pain from the wrist area which was noted from the site of cardiac cath, which is extended to right upper arm, was reported 9 out of 10 pain, he got morphine, possible pain that it'll be better Denied chest pain Problem List Medical Problems: (1) Abdominal pain Status: Acute (2) Abdominal pain Status: Acute (3) Abdominal pain Status: Acute (4) Colitis Status: Acute (5) GI bleed Status: Acute (6) Intractable abdominal pain Status: Acute (7) Right-sided chest pain Status: Acute Review of Systems Constitutional: No chills, No fatigue, No fever, No problem reported, No sweats , No weakness, No weight loss Eyes: No diplopia, No discharge, No eye pain, No redness, No worsening of vision ENT: No dental problems, No hearing loss, No nasal symptoms, No sore throat, No tinnitus, No trouble swallowing, No unusual epistaxis Respiratory: No cough, No dyspnea at rest, No dyspnea on exertion, No hemoptysis, No shortness of breath, No sputum, No wheezing Cardiac: No PND, No chest pain, No claudication, No edema, No orthopnea, No palpitations Abdomen: No constipation, No diarrhea, No nausea, No pain, No vomiting Musculoskeletal: + see HPI, No calf pain, No joint pain, No muscle pain, No swelling Male : No dysuria, No hematuria, No incontinence, No nocturia more than once/ night, No slowing stream, No urinary frequency Neurologic: No balance problems, No memory loss, No numbness/tingling, No paralysis, No vertigo, No weakness Psychiatric: No anhedonism, No anxiety, No depression symptoms, No insomnia, No substance abuse Heme: No abnormal bleeding/bruising, No clotting problems, No night sweats, No swollen lymph nodes Endo: No excessive thirst, No excessive urination, No fatigue Skin: No bleeding, No color change, No itch, No new/changing skin lesions, No rash Objective Vital Signs Date Time Temp Pulse Resp B/P Pulse Ox O2 Delivery O2 Flow Rate FiO2 03/16/17 12:00 Room Air 03/16/17 11:30 36.8 88 18 106/61 96 03/16/17 11:15 36.8 82 18 109/63 96 03/16/17 11:00 36.8 83 18 107/63 96 03/16/17 10:45 36.8 68 18 104/62 96 03/16/17 10:30 36.8 74 18 103/62 96 03/16/17 10:15 36.8 71 18 112/62 96 03/16/17 10:00 36.8 71 18 117/66 97 03/16/17 09:45 36.8 72 18 116/61 95 03/16/17 09:35 74 16 101/74 95 Room Air 03/16/17 09:20 72 16 111/73 96 Nasal Cannula 3 03/16/17 07:25 Room Air 03/16/17 04:00 Room Air 03/16/17 03:48 36.7 76 22 119/70 97 Room Air 03/16/17 00:01 Room Air 03/15/17 23:52 36.9 81 22 116/65 96 Room Air 03/15/17 21:00 98 Room Air 03/15/17 20:45 37.2 80 18 130/74 98 Room Air 03/15/17 20:32 107 18 97 03/15/17 19:58 37.2 80 18 130/74 98 Room Air 03/15/17 19:40 90 18 141/80 98 Room Air 03/15/17 18:23 136 98 Room Air 03/15/17 18:09 86 03/15/17 17:37 129/72 03/15/17 17:25 94 14 99 03/15/17 16:50 92 15 98 03/15/17 16:31 124/78 03/15/17 16:20 96 23 96 03/15/17 16:15 94 20 128/73 97 03/15/17 15:47 171/76 03/15/17 15:31 108/71 03/15/17 15:25 100 21 98 03/15/17 15:20 95 19 96 03/15/17 15:15 91 19 96 03/15/17 15:10 93 25 97 03/15/17 15:05 94 17 97 03/15/17 15:00 100 13 100 03/15/17 14:15 102 20 114/77 95 Room Air 03/15/17 14:15 96 Room Air 03/15/17 14:10 101 03/15/17 13:47 36.5 109 20 147/70 100 Room Air Physical Exam General Appearance: WD/WN, no apparent distress, + obese Eyes: normal inspection, PERRL, EOMI, sclerae normal ENT: normal ENT inspection, hearing grossly normal, pharynx normal Neck: supple, no adenopathy, thyroid normal, no JVD, no carotid bruits, trachea midline Respiratory/Chest: chest non-tender, lungs clear, normal breath sounds, no respiratory distress, no accessory muscle use Cardiovascular: regular rate, rhythm, no edema, no gallop, no JVD, no murmur Abdomen: normal bowel sounds, non tender, soft, no organomegaly, no pulsatile mass Extremities: normal range of motion, non-tender, normal inspection, no pedal edema, no calf tenderness, normal capillary refill, pelvis stable, + pertinent finding (right arm has no bluish or swelling, wrist pulse is 2+ and symmetric , there was no cyanosis OR color change) Neurologic/Psychiatric: profiler hand II-XII nml as tested, no motor/sensory deficits, alert, normal mood/affect, oriented x 3 Skin: normal color, warm/dry, no rash Lymphatic: no adenopathy Laboratory Results Last 24 Hours Test 03/15/17 14:17 03/15/17 15:17 03/15/17 15:21 03/15/17 16:18 White Blood Count 10.00 K/uL Red Blood Count 4.91 M/uL Hemoglobin 15.7 g/dL Hematocrit 46.1 % Mean Corpuscular Volume 93.9 fL Mean Corpuscular Hemoglobin 32.0 pg Mean Corpuscular Hemoglobin Concent 34.1 g/dl Platelet Count 203 K/uL Mean Platelet Volume 10.5 fL Neutrophils (%) (Auto) 63.1 % Lymphocytes (%) (Auto) 27.4 % Monocytes (%) (Auto) 6.9 % Eosinophils (%) (Auto) 1.5 % Basophils (%) (Auto) 0.4 % Neutrophils # (Auto) 6.31 K/uL Lymphocytes # (Auto) 2.74 K/uL Monocytes # (Auto) 0.69 K/uL Eosinophils # (Auto) 0.15 K/uL Basophils # (Auto) 0.04 K/uL RDW Standard Deviation 45.3 fL RDW Coefficient of Variation 13.1 % Immature Granulocyte % (Auto) 0.7 % Immature Granulocyte # (Auto) 0.07 K/uL Prothrombin Time 10.3 SECONDS Prothromb Time International Ratio 1.0 Activated Partial Thromboplast Time 25.7 SECONDS Partial Thromboplastin Ratio 1.0 Sodium Level 141 mmol/L Potassium Level 3.8 mmol/L Chloride Level 105 mmol/L Carbon Dioxide Level 32 mmol/L Anion Gap 4.0 mmol/L Blood Urea Nitrogen 10 mg/dl Creatinine 1.40 mg/dl Est Creatinine Clear Calc Drug Dose 107.2 ml/min Estimated GFR () 75.4 Estimated GFR (Non- 65.1 BUN/Creatinine Ratio 7.5 Random Glucose 91 mg/dl Calcium Level 9.2 mg/dl Total Creatine Kinase 498 U/L Creatine Kinase MB 1.7 ng/ml Creatine Kinase MB Ratio 0.3 Bedside Troponin I 0.010 ng/ml XO-Tvl-C-Type Natriuretic Peptide < 15 pg/ml Bedside Glucose 100 mg/dl Urine Color YELLOW Urine Appearance CLEAR Urine pH 7.0 Urine Specific [place] 1.011 Urine Protein NEG Urine Glucose (UA) NEG Urine Ketones NEG Urine Occult Blood NEG Urine Nitrite NEG Urine Bilirubin NEG Urine Urobilinogen NEG Urine Leukocyte Esterase NEG Urine Opiates Screen NEG Urine Methadone, Qualitative NEG Urine Barbiturates NEG Urine Phencyclidine (PCP) Level NEG Ur Amphetamine/Methamphetamine NEG MDMA (Ecstasy) Screen NEG Urine Benzodiazepines Screen POS Urine Cocaine Metabolite NEG Urine Marijuana (THC) NEG Test 03/16/17 00:39 03/16/17 08:51 03/16/17 08:57 03/16/17 09:04 Total Creatine Kinase 413 U/L Troponin I < 0.015 ng/ml Bedside Blood Gas pH (LAB) 7.34 7.34 7.36 Bedside Blood Gas pCO2 (LAB) 45 mmHg 44 mmHg 44 mmHg Bedside Blood Gas pO2 (LAB) < 32 mmHg < 32 mmHg 33 mmHg Bedside Blood Gas HCO3 (LAB) 24 meq/L 24 meq/L 25 meq/L Bedside Blood Gas Total CO2 25 mEq/l 25 mEq/l 26 mEq/l Bedside Blood Gas Base Excess (LAB) -2.0 meq/L -2.0 meq/L -1.0 meq/L Bedside Blood Gas O2 Saturation 56.0 % 56.0 % 61.0 % Test 03/16/17 09:05 03/16/17 09:08 03/16/17 09:10 Bedside Blood Gas pH (LAB) 7.34 7.32 7.32 Bedside Blood Gas pCO2 (LAB) 45 mmHg 46 mmHg 47 mmHg Bedside Blood Gas pO2 (LAB) 33 mmHg < 32 mmHg < 32 mmHg Bedside Blood Gas HCO3 (LAB) 24 meq/L 24 meq/L 24 meq/L Bedside Blood Gas Total CO2 25 mEq/l 25 mEq/l 26 mEq/l Bedside Blood Gas Base Excess (LAB) -2.0 meq/L -2.0 meq/L -2.0 meq/L Bedside Blood Gas O2 Saturation 60.0 % 52.0 % 55.0 % Assessment and Plan 37 y/o M admitted with worsening chest discomfort Acute with hx of chronic chest discomfort and SOB. SOB - occurs with exertion Patient has cardiac cath this morning by Dr. Gordillo, Per discussion with Dr. Gordillo, LM - Angiographically normal LAD - 40% mid segment stenosis with suggestion of myocardial bridging, distal luminal irregularities as wraps around apex Circumflex - Luminal irregularities Ramus - Angiographically normal RCA - Dominant, luminal irregularities, sluggish flow distal flow. Right arm pain after cardiac cath, pain control and watch for any signs of bluish or pulse change Mild elevated total CK, has trends down, encourage plenty fluid intake Full code - Heparin prophylaxis - Hospital discharged home in late afternoon or tomorrow morning Discussed with family Continued [facility] stay due to: multiple IV medications needed Discharge planning: home
[2017-03-16] MEDS ORDERED: ASPEC81 PO (15:35)
--- NOTE | 2017-03-16 15:37 | Discharge Instructions ---
Discharge Instructions Date of Service Mar 16, 2017. Admission Reason for Admission: Chest Pain Discharge Discharge Diagnosis / Problem: chest pain with LAD - 40% mid segment stenosis Discharge Goals Goal(s): Decrease discomfort, Improve function, Increase independence, Improve disease control, Improve nutritional status, Learn about illness, Diagnostic testing, Therapeutic intervention, Prevent Disease Progression, Specific goals Activity Recommendations Activity Limitations: resume your previous activity . Instructions / Follow-Up Instructions / Follow-Up you have chest pain with LAD - 40% mid segment stenosis in cardiac cath We do not have lipid profile checked yet, however will recommend you to eat healthy diet Continue follow up with your PCP to check a fasting lipid profile, statin if needs for cholesterol, you need to follow up with your PCP in this aspect - you need to follow up with your primary care physician in 1 week, - take medication as instructed, never overdose or any misuse, or take with alcohol, because misuse of medicine may cause organ damage or , call your primary care physician if have questions of medicaitons. - call your primary care physician OR go to local emergency room if has any fever/chill, chest pain, shortness of breathing, nausea/vomiting/abdominal pain , facial droop/slurry speech/local weakness, or if has any questions. - fall precaution - diet as instructed - you need to follow up with your subspecialist - you should understand that it is important to follow up the above instruction , and "not following the above instruction" may cause delayed or missed care of your medical conditions which may cause permanent organ damage and even . Current Hospital Diet Patient's current hospital diet: AHA Diet (Heart Healthy) Discharge Diet Recommended Diet: Low Sodium Diet (2gm Na), Low Fat Diet Procedures Procedures Performed: [facility] Pending Studies Studies pending at discharge: no Medical Emergencies . Who to Call and When: Medical Emergencies: If at any time you feel your situation is an emergency, please call 911 immediately. . Non-Emergent Contact Non-Emergency issues call your: Primary Care Provider, [facility] . . "Provider Documentation" section prepared by Vasu Ward. . VTE Core Measure Inpt VTE Proph given/why not?: Unfractionated heparin SQ
--- NOTE | 2017-03-16 15:51 | Discharge Summary ---
Discharge Summary Date of Service Mar 16, 2017. Discharge Summary Admission Date: Mar 15, 2017 at 19:56 Discharge Date: Mar 16, 2017 Discharge Disposition: Home Principal Diagnosis: chest pain with LAD - 40% mid segment stenosis in cardiac cath Problems/Secondary Diagnoses: Procedures: [facility] Consultations: manager lighting Medication Reconciliation New Medications: Aspirin (Aspirin EC Low Dose) 81 Mg Ectab 81 MG PO QAM for 30 Days Continued Medications: Albuterol Hfa (Ventolin Hfa) 200 Puffs/46124 Mcg Aers 2 PUFFS INH Q6H PRN for SOB/Wheezing, #1 INHALER Atenolol (Atenolol) 25 Mg Tab 25 TAB PO BID Cetirizine/Pseudoephedrine (Zyrtec-D Er 5MG/120MG) Tabcr 1 TAB PO UD PRN for ALLERGIES, TAB Dexlansoprazole (Dexilant) 60 Mg Cap 60 MG PO QAM Eluxadoline (Viberzi) 100 Mg Tab 100 MG PO BID Magnesium Oxide (Mag-Ox) 400 Mg Tab 800 MG PO QPM, TAB Magnesium Oxide (Mg Supplement (Magnesium Oxide) 400 Mg Tab 800 MG PO HS Montelukast Sodium (Singulair) 10 Mg Tab 10 MG PO QAM, TAB Sulindac (Clinoril) 200 Mg Tab 200 MG PO BID PRN for PRN, TAB Venlafaxine Hcl (Effexor Xr) 150 Mg Cap 300 MG PO DAILY for 30 Days, #60 CAP 2 Refills Venlafaxine Hcl (Effexor Xr) 75 Mg Cap 75 MG PO DAILY for 30 Days, #30 CAP Discharge Exam reported doing well, post [facility] Review of Systems: Constitutional: No chills, No fatigue, No fever, No problem reported, No sweats, No weakness, No weight loss Eyes: No diplopia, No discharge, No eye pain, No problem reported, No redness, No worsening of vision ENT: No dental problems, No hearing loss, No nasal symptoms, No problem reported, No sore throat, No tinnitus, No trouble swallowing, No unusual epistaxis Respiratory: No cough, No dyspnea at rest, No dyspnea on exertion, No hemoptysis, No problem reported, No shortness of breath, No sputum, No wheezing Cardiovascular: No PND, No chest pain, No claudication, No edema, No orthopnea, No palpitations, No problem reported Abdomen: No GI bleeding, No constipation, No diarrhea, No nausea, No pain, No problem reported, No vomiting Musculoskeletal: No calf pain, No joint pain, No muscle pain, No problem reported, No swelling Genitourinary - Male: No dysuria, No hematuria, No impotence, No lesions, No penile discharge, No problem reported, No urinary frequency, No urinary hesitancy, No urinary incontinence, No urinary retention, No urinary urgency Neurologic: No balance problems, No memory loss, No numbness/tingling, No paralysis, No problem reported, No vertigo, No weakness Psychiatric: No anhedonism, No anxiety, No depression symptoms, No insomnia , No problem reported, No substance abuse Endocrine: No excessive thirst, No excessive urination, No fatigue, No problem reported Hematologic / Lymphatic: No abnormal bleeding/bruising, No clotting problems , No night sweats, No problem reported, No swollen lymph nodes Integumentary: No bleeding, No color change, No itch, No new/changing skin lesions, No problem reported, No rash Physical Exam: General Appearance: + pertinent finding (see today's note) Hospital Course 37 y/o M admitted with worsening chest discomfort Acute chest pain with hx of chronic chest discomfort and SOB. SOB - occurs with exertion Patient has cardiac cath this morning by Dr. Gordillo, Per discussion with Dr. Gordillo, LM - Angiographically normal LAD - 40% mid segment stenosis with suggestion of myocardial bridging, distal luminal irregularities as wraps around apex Circumflex - Luminal irregularities Ramus - Angiographically normal RCA - Dominant, luminal irregularities, sluggish flow distal flow. Right arm pain after cardiac cath, pain control and watch for any signs of bluish or pulse change, he has been doing well, for several hours, no cyanosis , and no pulse changes, no color changes Mild elevated total CK, has trends down, encourage plenty fluid intake We do not have lipid profile checked yet, however will recommend you to eat healthy diet, per recommendation from manager lighting , will be good to start at statin, for the secondary prevention of cad, however patient has no lipid profile checked yet, I recommend PCP to follow-up this, startstatin as soon as possible, cardiology recommended Atorvastatin if possible Full code - Heparin prophylaxis - Hospital discharged home in late afternoon or tomorrow morning Discussed with family Instructions / Follow-Up you have chest pain with LAD - 40% mid segment stenosis in cardiac cath We do not have lipid profile checked yet, however will recommend you to eat healthy diet Continue follow up with your PCP to check a fasting lipid profile, statin if needs for cholesterol, you need to follow up with your PCP in this aspect - you need to follow up with your primary care physician in 1 week, - take medication as instructed, never overdose or any misuse, or take with alcohol, because misuse of medicine may cause organ damage or , call your primary care physician if have questions of medicaitons. - call your primary care physician OR go to local emergency room if has any fever/chill, chest pain, shortness of breathing, nausea/vomiting/abdominal pain , facial droop/slurry speech/local weakness, or if has any questions. - fall precaution - diet as instructed - you need to follow up with your subspecialist - you should understand that it is important to follow up the above instruction , and "not following the above instruction" may cause delayed or missed care of your medical conditions which may cause permanent organ damage and even . Total Time Spent: Less than 30 minutes This includes examination of the patient, discharge planning, medication reconciliation, and communication with other providers. Discharge Instructions Please refer to the electronic Patient Visit Report (Discharge Instructions) for additional information. Additional Copies To Raúl Gordillo MD; Bhaskar Noble D.O.
--- NOTE | 2017-03-16 23:50 | Cardiac Catheterization ---
Procedure Note Procedure Date Mar 16, 2017. Pre-Procedure Diagnosis Angina AUC Score 7 Post-Procedure Diagnosis Moderate CAD, Normal LV Systolic Function, Elevated Intracardiac Pressures Procedure(s) Performed Coronary Angiography, Left Heart Cath, Right Heart Cath, Ultrasound Guided Vascular Access Head Kiln Operator Dr. Gordillo Clipper Counters(s) Glunt Estimated Blood Loss 15 Medication(s) Fentanyl, Heparin, Nitroglycerin, Versed, Lidocaine 1% Summary of Findings Indication: Accelerating chest pain/Hypoxia/Suspected possible pulmonary hypertension. Access: 6Fr Slender Right Radial Artery; ultrasound guided brachial vein access 6Fr Catheters: 6Fr [place], 4Fr MPA, 5Fr [place] Findings: LM - Angiographically normal LAD - 40% mid segment stenosis with suggestion of myocardial bridging, distal luminal irregularities as wraps around apex Circumflex - Luminal irregularities Ramus - Angiographically normal RCA - Dominant, luminal irregularities, sluggish distal flow. RHC-- RA 10 RV 26/10 PA 25/15 (20) PCW 19 LVEDP 8 Saturations: Ao 95% on 3L SVC 55% IVC 49% High RA 52% Mid RA 55% Low RA 58% RV 58% RPA 56%, LPA 56% Qp/Qs 1.07 NATHAN/CI - 4.3/1.7 TCO/CI - 4.8/1.9 Arterial Closure: TR Band Summary: 1. Mild to moderate nonobstructive coronary artery disease - 40% mid LAD stenosis - Coronary slow flow 2. Mildly reduced cardiac output 3. Normal pulmonary artery pressures 4. Mildly elevated right-sided filling pressures 5. Borderline step-up in low right atrium but no evidence of hemodynamically significant left to right shunt. Recommendations: Start statin, aspirin and continued ASCVD modifiable risk factor reduction. Outpatient cardiology follow-up for elevated right sided filling pressures and dilated RV on prior Echo Follow-up results of recent ambulatory monitoring. Continued pulmonary follow-up for episodic hypoxia Hemodynamics Rest Ao: 97/71/80 Final Ao: 93/70/82 LV: 92/8 Recommendations Medical therapy and/or Counseling Specimens None Radiation Exposure (mGy) 1866 Contrast (mls) 50 Fluids (cc crystalloids) 118 Drains None Anesthesia Moderate (start 825 - end 919) Procedural Complication(s) None Disposition PCU ACC Data Cardiac Status Clinical evaluation leading to the procedure CAD Presntation: Unstable angina Anginal Classification: CCS III Heart Failure: No, NYHA Class: CCS I Cardiogenic Shock w/in 24Hrs: No Cardiac Arrest w/in 24Hrs: No Imaging studies past 6 months: Yes Stress studies past 6 months: Yes Standard Exercise Stress Test: No Stress Echocardiogram: Yes - Indeterminant Stress Testing w/SPECT MPI: No Cardiac CTA: No Coronary Anatomy Dominant: Right Left Main (% Stenosis): Normal LAD (% Stenosis): Mid (40) Circumflex (% Stenosis): Normal RCA (% Stenosis): Normal Diagnostic Physician's Name: Raúl Gordillo MD Status: Elective Closure Device Percutaneous Entry Location: Radial Closure Device: Radial Band Recommendations: Medical therapy and/or Counseling Intraprocedure Events Significant Dissection: No Perforation: No
[2017-03-19 00:17] LABS: HYDROXYETHYLFLURAZEPAM CONF NEGATIVE NG/ML (CUTOFF=50); HYDROXYMIDAZOLAM NEGATIVE NG/ML (CUTOFF=50); HYDROXYTRIAZOLAM CONF NEGATIVE NG/ML (CUTOFF=50); TEMAZEPAM CONF NEGATIVE NG/ML (CUTOFF=50)
[2017-03-20 11:05] LABS: ISTAT CARBON DIOXIDE VENOUS 25 mEq/l (24-31); ISTAT VENOUS BLOOD GAS HCO3 24 meq/L (23-28); ISTAT VENOUS BLOOD GAS PCO2 44 mmHg (38.0-50.0); ISTAT VENOUS BLOOD GAS PO2 < 32 mmHg (30-55); ISTAT VENOUS BLOOD GAS pH 7.34 (7.36-7.41)
[2017-03-20 11:05] LABS: ISTAT CARBON DIOXIDE VENOUS 27 mEq/l (24-31); ISTAT VENOUS BLOOD GAS HCO3 25 meq/L (23-28); ISTAT VENOUS BLOOD GAS PCO2 45 mmHg (38.0-50.0); ISTAT VENOUS BLOOD GAS PO2 < 32 mmHg (30-55); ISTAT VENOUS BLOOD GAS pH 7.35 (7.36-7.41)
[2017-03-20 11:05] LABS: ISTAT ARTERIAL BLOOD GAS HCO3 22 meq/L (19-24); ISTAT ARTERIAL BLOOD GAS PCO2 39 mmHg (35-46); ISTAT ARTERIAL BLOOD GAS PO2 62 mmHg (80-95); ISTAT ARTERIAL BLOOD GAS pH 7.36 (7.35-7.45); ISTAT CARBON DIOXIDE 23 mEq/l (24-31)
[2017-04-06] MEDS ORDERED: CEFD300C2 PO (16:46)
== END 2017-03-16 16:30 | disposition home or self-care (01) ==
LOC: ENRESERVDT → ENRESERVTM → C.EDB 13:44 → C.2E 19:56
PROVIDERS: ADMIT Internal Medicine; ATTEND Hospitalist
DX: I25.10 Atherosclerotic heart disease of native coronary artery without angina pectoris (principal); J45.909 Unspecified asthma, uncomplicated; Z87.820 Personal history of traumatic brain injury; Z86.711 Personal history of pulmonary embolism; Z83.3 Family history of diabetes mellitus; Z82.49 Family history of ischemic heart disease and other diseases of the circulatory system; Z79.82 Long term (current) use of aspirin; Z79.899 Other long term (current) drug therapy; F45.8 Other somatoform disorders; R00.2 Palpitations; E66.01 Morbid (severe) obesity due to excess calories; K52.9 Noninfective gastroenteritis and colitis, unspecified; R10.9 Unspecified abdominal pain

== ENCOUNTER 2017-04-05 18:44 | Observation (INO) | payer OTHER ==
[~2017-04-05] VITALS: Ht 193 cm; Wt 125.0 kg
[~2017-04-05 18:44] MED LIST changes: -ACET-1311 PO; -ALBU1AER9 INH; +ASPEC81 PO; +CETITAB27 PO; -CLID5CAP PO; -CLN150 PO; +DEXL60CA4 PO; +ELUX1TAB2 PO; -FLM4 PO; +MAGN400T6 PO; -OMEP40CA PO; +SULI200T4 PO; +VENL150C PO; -VENL150T33 PO; +VENL75CA PO; +VNTHFA/IN INH
[2017-04-05] MEDS ORDERED: SODIUM CHLORIDE 0.9% 1000ML 1,000 ML IV STA (19:09)
[2017-04-05] MEDS ORDERED: HYDROmorphone INJ 1 MG/ML SYR IV STA ×2 (19:17→21:08)
[2017-04-05 19:29] LABS: BASO % 0.3 %; BASO ABS # 0.03 K/uL (0-0.2); COMPLETE YES; EOS % 2.5 %; HEMATOCRIT 44.6 % (42-52); IG% 0.7 %; LYMPH % 33.8 %; LYMPH ABS # 2.99 K/uL (1.2-3.4); MEAN CELL VOLUME 94.3 fL (80-100); MEAN CORPUSCULAR HEMOGLOBIN 31.9 pg (25-34); MEAN CORPUSCULAR HGB CONC 33.9 g/dl (32-36); MEAN PLATELET VOLUME 10.1 fL (7.4-10.4); MONO % 6.4 %; NEUT % 56.3 %; PLATELET COUNT 217 K/uL (130-400); RED BLOOD COUNT 4.73 M/uL (4.7-6.1); WHITE BLOOD COUNT 8.84 K/uL (4.8-10.8)
[2017-04-05] MEDS ORDERED: VLM2 PO (19:32)
[2017-04-05] MEDS ORDERED: METO10TA3 PO (19:32)
[2017-04-05 19:55] LABS: BLOOD UREA NITROGEN 10 mg/dl (7-18); C-REACTIVE PROTEIN 0.65 mg/dl (0-0.29); CARBON DIOXIDE 30 mmol/L (21-32); CHLORIDE 107 mmol/L (98-107); GLUCOSE 105 mg/dl (70-99); MAGNESIUM 2.4 mg/dl (1.8-2.4); POTASSIUM 4.3 mmol/L (3.5-5.1); SODIUM 143 mmol/L (136-145)
[2017-04-05] MEDS ORDERED: CEFTRIAXONE SOD INJ 1 GM ADDVIAL IV STA (21:15)
[2017-04-05] MEDS ORDERED: LIDODERM (LIDOCAINE) PATCH 5% TD SCH (21:15)
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
[2017-04-05] MEDS ORDERED: ACETAMINOPHEN 325 MG TAB PO PRN (22:45)
[2017-04-05] MEDS ORDERED: IV FLUIDS COMPLETED PRN (22:45)
[2017-04-05] MEDS ORDERED: POLYETHYLENE (MIRALAX) 17 GM PACK PO PRN (22:45)
[2017-04-05] MEDS ORDERED: ONDANSETRON INJ 2 MG/ML 2 ML VIAL IV PRN (22:45)
[2017-04-05] MEDS ORDERED: METOCLOPRAMIDE HCL 10 MG TAB PO PRN (23:00)
[2017-04-05] MEDS ORDERED: SULINDAC 200 MG TAB PO PRN (23:00)
[2017-04-05] MEDS ORDERED: ALBUTEROL HFA 8 GM INHALER INH PRN (23:00)
[2017-04-05] MEDS ORDERED: METHYLPREDNISOLONE IV 125 MG in SYRINGE 0 ML IV STA (23:22)
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
[2017-04-05 23:24] LABS: RHEUMATOID FACTOR < 10.0 U/mL (0-15)
[2017-04-06] MEDS ORDERED: NURSING VERBAL MED ORDER ONE (01:15)
[2017-04-06] MEDS ORDERED: CEFTRIAXONE SOD INJ 1000 MG in DEXTROSE 5% 50ML IV STA (01:21)
[2017-04-06 04:47] VITALS: BP 134/91; TEMP 36.6; Ht 193 cm; Wt 125.0 kg
[2017-04-06 06:42] LABS: BASO % 0.2 %; BASO ABS # 0.01 K/uL (0-0.2); COMPLETE YES; EOS % 0.3 %; HEMATOCRIT 44.7 % (42-52); IG% 0.5 %; LYMPH % 17.2 %; MEAN CELL VOLUME 93.3 fL (80-100); MEAN CORPUSCULAR HEMOGLOBIN 32.4 pg (25-34); MEAN CORPUSCULAR HGB CONC 34.7 g/dl (32-36); MEAN PLATELET VOLUME 10.1 fL (7.4-10.4); MONO % 1.2 %; NEUT % 80.6 %; PLATELET COUNT 198 K/uL (130-400); RED BLOOD COUNT 4.79 M/uL (4.7-6.1); WHITE BLOOD COUNT 5.82 K/uL (4.8-10.8)
[2017-04-06 07:12] LABS: BUN/CREATININE RATIO 7.2 (10-20); CALCIUM 9.3 mg/dl (8.5-10.1); CREATININE 1.3 mg/dl (0.60-1.40); POTASSIUM 4.5 mmol/L (3.5-5.1)
[2017-04-06 07:40] VITALS: BP 131/82; PULSE 84; TEMP 36.4; O2SAT 96
--- NOTE | 2017-04-06 07:40 | Family Medicine Progress Note ---
Progress Note Date of Service April 06, 2017. Subjective Pt evaluation today including: conversation w/ patient, physical exam, chart review, lab review Objective Vital Signs Date Time Temp Pulse Resp B/P Pulse Ox O2 Delivery O2 Flow Rate FiO2 04/06/17 04:47 36.6 16 134/91 Room Air 04/05/17 22:34 75 16 134/91 95 Room Air 04/05/17 20:46 79 16 128/77 95 Room Air 04/05/17 19:18 91 04/05/17 19:15 90 16 118/92 92 119/93 95 109/93 04/05/17 18:54 36.6 90 18 114/76 94 Room Air Resident Tracking Resident Involvement: Resident Care Provided Care Provided: Adult Hospital Medicine
[2017-04-06 08:00] VITALS: O2SAT 96
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
[2017-04-06] MEDS ORDERED: VENLAFAXINE HCL XR 150 MG CAPXR PO SCH (09:00)
[2017-04-06] MEDS ORDERED: ENOXAPARIN 40 MG/0.4 ML SYR SQ SCH (09:00)
[2017-04-06] MEDS ORDERED: DIAZEPAM 2MG TAB PO SCH (09:00)
[2017-04-06] MEDS ORDERED: DIAZEPAM 2MG TAB PO PRN (09:00)
[2017-04-06] MEDS ORDERED: ASPIRIN 81 MG ECTAB PO SCH (09:00)
[2017-04-06] MEDS ORDERED: MONTELUKAST SOD 10 MG TAB PO SCH (09:00)
[2017-04-06] MEDS ORDERED: VENLAFAXINE HCL XR 75 MG CAPXR PO SCH (09:00)
[2017-04-06] MEDS ORDERED: PANTOprazole SOD 40 MG TAB PO SCH (09:00)
[2017-04-06] MEDS ORDERED: KETOROLAC TROMETHAMINE 30 MG/ML VIAL IV PRN (10:00)
--- NOTE | 2017-04-06 10:28 | Progress Note ---
Progress Note Date of Service April 06, 2017. Progress Note ID Consult Dictated #[id number] A/P: 1. Right radial artery thrombus 2. h/o hilar adenopathy -No evidence of cellulitis, agree with d/c abx -Doubt infectious etiology for hilar nodes, will need workup, can be done as outpt, may need biopsy, if infection found, can follow in office. -No contraindication for d/c from ID standpoint
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
--- NOTE | 2017-04-06 10:37 | Cardiology Follow-Up ---
Subjective Subjective Date of Service: April 06, 2017. Pt evaluation today including: conversation w/ patient, physical exam, chart review, lab review, review of studies, review of inpatient medication list Additional Details: Reports improved pain in his arm/hand this morning. States redness improved. No other new concerns. Problem List Medical Problems: (1) Abdominal pain Status: Acute (2) Abdominal pain Status: Acute (3) Abdominal pain Status: Acute (4) Cellulitis of wrist Status: Acute (5) Colitis Status: Acute (6) Fatigue Status: Acute (7) GI bleed Status: Acute (8) Intractable abdominal pain Status: Acute (9) Post-operative pain Status: Acute (10) Right-sided chest pain Status: Acute (11) Shortness of breath Status: Acute Review of Systems Constitutional: No fever ENT: No hearing loss Respiratory: No cough Cardiac: No chest pain Abdomen: No pain Musculoskeletal: + see HPI Heme: No abnormal bleeding/bruising Endo: + fatigue Skin: No new/changing skin lesions Objective Vital Signs Last Vital Signs Documentation Date Time Temp Pulse Resp B/P Pulse Ox O2 Delivery O2 Flow Rate FiO2 04/06/17 07:40 36.4 84 18 131/82 96 04/06/17 04:47 Room Air Physical Exam: General Appearance: no apparent distress, + obese ENT: normal ENT inspection, hearing grossly normal, pharynx normal Respiratory/Chest: lungs clear, normal breath sounds Cardiovascular: regular rate, rhythm, no edema, no murmur Abdomen: non tender, soft Extremities: no calf tenderness, normal capillary refill, + pertinent finding ( Minimal tenderness at right radial access site. Intact pulse, intact distal cap refill. Mildly decreased sensation to light touch over thumb) Neurologic/Psychiatric: alert, normal mood/affect Skin: normal color, warm/dry Lymphatic: no adenopathy Assessment and Plan 1. Right distal upper extremity pain, question right radial artery access site partial thrombus. 2. Autonomic dysfunction with hyperalgesia. 3. Mild right ventricular dysfunction, dilation on prior imaging. 4. Traumatic brain injury. 5. History of pulmonary embolism. Right radial artery access site pain improved this AM. Decreased redness per patient. For partial thrombus, no other therapy thought necessary at this time. Continue home aspirin From a cardiac standpoint OK for discharge. Appreciate hospital medicine team care. Can follow-up with me in 2-3 months. Medications: Current Inpatient Medications Medications (Trade) Dose Ordered Sig/Rasta Route Start Time Stop Time Status Last Admin Dose Admin Acetaminophen (Tylenol Tab) 650 mg Q4H PRN PO 04/05/17 22:45 05/05/17 22:44 Polyethylene (Miralax Powder Packet) 17 gm DAILY PRN PO 04/05/17 22:45 05/05/17 22:44 Ondansetron HCl (Zofran Inj) 4 mg Q6H PRN IV 04/05/17 22:45 05/05/17 22:44 Miscellaneous (Iv Fluids Completed) 1 ea PRN PRN N/A 04/05/17 22:45 04/05/18 22:44 Albuterol (Ventolin Hfa Inhaler) 2 puffs Q6H PRN INH 04/05/17 23:00 05/05/17 22:59 Atenolol (Tenormin Tab) 25 mg BID PO 04/06/17 09:00 05/06/17 08:59 04/06/17 08:55 25 MG Magnesium Oxide (Mag-Ox Tab) 800 mg QPM PO 04/06/17 21:00 05/06/17 20:59 Metoclopramide HCl (Reglan Tab) 10 mg TID PRN PO 04/05/17 23:00 05/05/17 22:59 Montelukast Sodium (Singulair Tab) 10 mg QAM PO 04/06/17 09:00 05/06/17 08:59 04/06/17 08:55 10 MG Sulindac (Clinoril Tab) 200 mg BID PRN PO 04/05/17 23:00 05/05/17 22:59 Venlafaxine HCl (effeXOR EXTENDED REL CAP) 75 mg DAILY PO 04/06/17 09:00 05/06/17 08:59 04/06/17 08:56 75 MG Venlafaxine HCl (effeXOR EXTENDED REL CAP) 300 mg DAILY PO 04/06/17 09:00 05/06/17 08:59 04/06/17 08:56 300 MG Miscellaneous Information (Order Awaiting Action) 1 ea QS N/A 04/06/17 00:00 05/06/17 00:00 Pantoprazole Sodium (Protonix Tab) 40 mg BID PO 04/06/17 09:00 05/06/17 08:59 04/06/17 08:55 40 MG Aspirin (Ecotrin Tab) 81 mg QAM PO 04/06/17 09:00 05/06/17 08:59 04/06/17 08:57 81 MG Enoxaparin Sodium (Lovenox Inj) 40 mg QAM SQ 04/06/17 09:00 05/06/17 08:59 Ketorolac Tromethamine (Toradol Inj) 30 mg Q6H PRN IV 04/06/17 10:00 04/11/17 09:59 Diazepam (Valium Tab) 5 mg BID PRN PO 04/06/17 21:00 05/06/17 20:59 Lab Results: 04/06/17 06:29 Red Blood Count 4.79, Mean Corpuscular Volume 93.3, Mean Corpuscular Hemoglobin 32.4, Mean Corpuscular Hemoglobin Concent 34.7, Mean Platelet Volume 10.1, Neutrophils (%) (Auto) 80.6, Lymphocytes (%) (Auto) 17.2, Monocytes (%) (Auto) 1.2, Eosinophils (%) (Auto) 0.3, Basophils (%) (Auto) 0.2, Neutrophils # (Auto) 4.69, Lymphocytes # (Auto) 1.00, Monocytes # (Auto) 0.07, Eosinophils # (Auto) 0.02, Basophils # (Auto) 0.01 04/06/17 06:29 Test 04/05/17 19:15 04/06/17 06:29 Erythrocyte Sedimentation Rate 18 mm/hr (0-14) Magnesium Level 2.4 mg/dl (1.8-2.4) C-Reactive Protein 0.65 mg/dl (0-0.29) Chemistry Specimen Hemolysis Rheumatoid Factor < 10.0 U/mL (0-15) White Blood Count 5.82 K/uL (4.8-10.8) Red Blood Count 4.79 M/uL (4.7-6.1) Hemoglobin 15.5 g/dL (14.0-18.0) Hematocrit 44.7 % (42-52) Mean Corpuscular Volume 93.3 fL (80-100) Mean Corpuscular Hemoglobin 32.4 pg (25-34) Mean Corpuscular Hemoglobin Concent 34.7 g/dl (32-36) Platelet Count 198 K/uL (130-400) Mean Platelet Volume 10.1 fL (7.4-10.4) Neutrophils (%) (Auto) 80.6 % Lymphocytes (%) (Auto) 17.2 % Monocytes (%) (Auto) 1.2 % Eosinophils (%) (Auto) 0.3 % Basophils (%) (Auto) 0.2 % Neutrophils # (Auto) 4.69 K/uL (1.4-6.5) Lymphocytes # (Auto) 1.00 K/uL (1.2-3.4) Monocytes # (Auto) 0.07 K/uL (0.11-0.59) Eosinophils # (Auto) 0.02 K/uL (0-0.5) Basophils # (Auto) 0.01 K/uL (0-0.2) RDW Standard Deviation 42.8 fL (36.4-46.3) RDW Coefficient of Variation 12.7 % (11.5-14.5) Immature Granulocyte % (Auto) 0.5 % Immature Granulocyte # (Auto) 0.03 K/uL (0.00-0.02) Anion Gap 7.0 mmol/L (3-11) Est Creatinine Clear Calc Drug Dose 115.6 ml/min Estimated GFR () 82.5 Estimated GFR (Non- 71.2 BUN/Creatinine Ratio 7.2 (10-20) Lactic Acid Level 2.3 mmol/L (0.4-2.0) Calcium Level 9.3 mg/dl (8.5-10.1) Total Bilirubin 0.4 mg/dl (0.2-1) Aspartate Amino Transf (AST/SGOT) 27 U/L (15-37) Alanine Aminotransferase (ALT/SGPT) 70 U/L (12-78) Alkaline Phosphatase 81 U/L (45-117) Total Protein 8.0 gm/dl (6.4-8.2) Albumin 3.9 gm/dl (3.4-5.0) Globulin 4.1 gm/dl (2.5-4.0) Albumin/Globulin Ratio 1.0 (0.9-2)
--- NOTE | 2017-04-06 10:38 | Consultant Recommendations ---
Potato Chip Processing Supervisor Recommendations Date of Service April 06, 2017. Potato Chip Processing Supervisor Recommendations The pulmonary service will sign off. Please have the patient f/u in the [facility] in after his D/C for his thoracic lymph-nodes and dyspnea on excretion work-up.
--- NOTE | 2017-04-06 11:48 | INFECT. DISEASE CONSULTATION ---
DATE OF CONSULTATION: 04/06/2017 DATE OF CONSULTATION: 04/06/2017. REQUESTING PHYSICIAN: Dr. Ryan. HISTORY OF PRESENT ILLNESS: This is a 36-year-old gentleman who recently underwent a cardiac catheterization. He did have pain in the right upper extremity at the time of catheterization, but this initially resolved. Yesterday it returned spontaneously and he describes this as 9/10 pain. He was initially evaluated at [facility] and then transferred here as this was the institution where his cath was performed. He was seen by cardiology and found to have a partial clot in the right radial artery. He has been started on treatment for this and states this morning he is feeling significantly better. There was some concern of cellulitis as there was minimal erythema at the site yesterday. He was given a 1 time dose of Rocephin in the Emergency Room and admitted without antibiotics. He states the erythema has resolved completely. He denies any bleeding or purulent drainage from the area. He denies any warmth or erythema this morning. He states overall he is feeling significantly better and his range of motion has improved this morning. His only complaint is of some mild numbness over the right thumb and continued pain; however, this has mostly resolved. He does carry a history of bilateral hilar lymphadenopathy which was diagnosed sometime ago. He does not admit to having any workup for this as an outpatient to date. Infectious diseases was consulted for this. A pulmonary consultation is also pending. He denies any cough, shortness of breath, dyspnea on exertion, hemoptysis, weight loss, night sweats, fever, chills, chest pain. He states he has not been on antibiotics recently. He is from [facility] and has been here his entire life. He denies any significant travel. He denies having previous workup for this. No imaging was obtained during this admission. He states he is to be discharged today. He has been afebrile since admission to the hospital. He does not have leukocytosis. His sed rate is 18. All remaining review of systems are reviewed and are unremarkable. PAST MEDICAL HISTORY: Significant for asthma, kidney stones, autonomic dysfunction hyperalgesia, and chronic neck pain. PAST SURGICAL HISTORY: Significant for cardiac catheterization on 03/16/2017. FAMILY HISTORY: Noncontributory. SOCIAL HISTORY: Negative for drug use, alcohol use or tobacco use. He is and lives with his . He denies any sick contacts. ALLERGIES: HE IS ALLERGIC TO TOPIRAMATE AND VALPROIC ACID. CURRENT MEDICATIONS: Include magnesium, Valium, Toradol, atenolol, Singulair, Effexor, Protonix, Ecotrin, Lovenox, albuterol, Reglan, Tylenol, MiraLax and Zofran. PHYSICAL EXAMINATION: VITAL SIGNS: He is afebrile, pulse 84, respiratory rate 18, blood pressure 131/82, oxygen saturation is 96% on room air. GENERAL: He is awake, alert and oriented x3. He is in no acute distress. HEAD, EYES, EARS, NOSE, AND THROAT: Mucous membranes are moist. Extraocular muscles are intact. HEART: Regular. LUNGS: Clear bilaterally. ABDOMEN: Soft, nontender, nondistended. There is no lower extremity edema. SKIN: Without rash. Examination of the right upper extremity did not reveal any warmth, erythema, induration. There is minimal tenderness to the area of the clot. LABORATORY STUDIES: CBC today reveals a white blood cell count of 5.8, hemoglobin 15.5 Chemistry panel reveals a sodium of 143, potassium 4.5, chloride 111, bicarb 25, BUN 9, creatinine 1.3. LFTs are normal. Rheumatoid factor is negative. YOUSIF is pending. Titers for histoplasma and psittacosis are pending as well. There is no imaging or micro to review. ASSESSMENT AND PLAN: Right radial artery partial thrombosis. He is being treated for this, this certainly could be because of his elevated inflammatory markers. I do not see any evidence of cellulitis and agree with discontinuation of antibiotics. He does have a prolonged history of hilar adenopathy and certainly this workup can be continued as an outpatient. Should any infectious etiology be identified he can follow up in the office. I do not see any contraindication to discharge. ALEX
[2017-04-06 14:52] VITALS: BP 113/73; PULSE 79; TEMP 36.3; O2SAT 95
[2017-04-06 16:45] VITALS: BP 113/73; PULSE 79; TEMP 36.3; O2SAT 95
[2017-04-06] MEDS ORDERED: CEFD300C2 PO (16:46)
--- NOTE | 2017-04-06 16:47 | Discharge Instructions ---
Discharge Instructions Date of Service April 06, 2017. Admission Reason for Admission: Right Arm Pain Discharge Discharge Diagnosis / Problem: right wrist cellulitis Discharge Goals Goal(s): Improve function, Diagnostic testing, Therapeutic intervention Activity Recommendations Activity Limitations: resume your previous activity . Current Hospital Diet Patient's current hospital diet: Regular Diet Discharge Diet Recommended Diet: Regular Diet Pending Studies Studies pending at discharge: no Medical Emergencies . Who to Call and When: Medical Emergencies: If at any time you feel your situation is an emergency, please call 911 immediately. . Non-Emergent Contact Non-Emergency issues call your: Primary Care Provider . . "Provider Documentation" section prepared by Fredrick Santillan. . Senior Tableau Developer Recommendations Senior Tableau Developer Recommendations: The pulmonary service will sign off. Please have the patient f/u in the [facility] in after his D/C for his thoracic lymph-nodes and dyspnea on excretion work-up. VTE Core Measure Inpt VTE Proph given/why not?: Treatment not indicated (young age, mobile, observation status)
[2017-04-06] MEDS ORDERED: MAGNESIUM OXIDE 400 MG TAB PO SCH (21:00)
[2017-04-06] MEDS ORDERED: DIAZEPAM 5MG TAB PO PRN (21:00)
--- NOTE | 2017-04-06 22:34 | Discharge Summary ---
Discharge Summary Date of Service April 06, 2017. Discharge Summary Admission Date: April 05, 2017 at 22:34 Discharge Date: April 06, 2017 Discharge Disposition: Home Principal Diagnosis: Partial thrombosis of right radial artery, Cellulitis Medication Reconciliation New Medications: Cefdinir (Omnicef) 300 Mg Cap 1 CAP PO BID, #6 CAP Continued Medications: Albuterol Hfa (Ventolin Hfa) 200 Puffs/64144 Mcg Aers 2 PUFFS INH Q6H PRN for SOB/Wheezing, #1 INHALER Atenolol (Atenolol) 25 Mg Tab 25 TAB PO BID Cetirizine/Pseudoephedrine (Zyrtec-D Er 5MG/120MG) Tabcr 1 TAB PO UD PRN for ALLERGIES, TAB Dexlansoprazole (Dexilant) 60 Mg Cap 60 MG PO QAM Diazepam (Diazepam) 2 Mg Tab 2 MG PO BID, #30 TAKE WITH THE SULINDAC Eluxadoline (Viberzi) 100 Mg Tab 100 MG PO BID Magnesium Oxide (Mag-Ox) 400 Mg Tab 800 MG PO QPM, TAB Metoclopramide HCl (Metoclopramide HCl) 10 Mg Tab 10 MG PO DIRECTED, #30 TAKE WITH THE SULINDAC Montelukast Sodium (Singulair) 10 Mg Tab 10 MG PO QAM, TAB Sulindac (Clinoril) 200 Mg Tab 200 MG PO BID PRN for PRN, TAB Venlafaxine Hcl (Effexor Xr) 150 Mg Cap 300 MG PO DAILY for 30 Days, #60 CAP 2 Refills Venlafaxine Hcl (Effexor Xr) 75 Mg Cap 75 MG PO DAILY for 30 Days, #30 CAP Discharge Exam Patient comfortable. States significant improvement with wrist symptoms already. Does state that he has a mild headache, but it has improved with medication. 45min discussion had with patient, his and mother regarding TBI , alternative options for pain management, as well as his current medication. Review of Systems: Constitutional: No chills, No fever Respiratory: No cough, No shortness of breath, No wheezing Cardiovascular: No chest pain, No edema, No orthopnea, No palpitations Abdomen: No GI bleeding, No constipation, No diarrhea, No nausea, No pain, No vomiting Musculoskeletal: + joint pain (at right wrist), No calf pain, No muscle pain Genitourinary - Male: No dysuria, No hematuria Neurologic: No numbness/tingling Integumentary: + color change (at right wrist - improved erythema) Hospital Course 36 year old male with autonomic dysfunction and hyperalgesia presents to the ER with increasing pain and swelling at the radial artery cardiac cath site with loss of blood flow through radial artery Partial right radial artery thrombosis s/p cardiac catheterization - Ultrasound of this wrist at [facility] showed dilation of the right radial artery with little to no blood flow seen at the area of the patient's lump/pain in the right wrist. - Good distal capillary refill, painful skin to light palpation - Cardiology consulted Of note, during the cardiac catheterization on 03/16/2017 he reportedly had excruciating pain in his right arm when the catheter was inserted. The cath showed mild to moderate nonobstructive coronary artery disease (40% mid LAD stenosis), normal pulmonary artery pressures, mildly elevated right-sided filling pressures, borderline step-up in low right atrium but no evidence of hemodynamically significant left to right shunt. Right wrist Cellulitis - Treat with IV ceftriaxone for cellulitis, with rapid improvement of erythema and pain and ROM of wrist - Discharge home with 3 more days of Cefdinir 300mg BID Coronary artery disease - On catheterization report recommended to start ASA and statin but patient never took these - Advised to patient to continue taking aspirin and to stop 1 week prior to epidurals, and restart1-2 days after - Patient was advised to recheck fasting lipid with PCP and assess need for statin Bi-hilar lymphadenopathy increased on scan from Nov to February 2017, mildly elevated right ventricular filling pressures and pain during catheterization - raises possibility for vasculitis process - ESR, ANCA, YOUSIF, RF pending on discharge - LIZABETH level also pending - Pulmonology consulted and will follow up with patient as outpatient - Chlamydia psittaci and histoplasmosis panels also pending, and follow up with ID will be necessary if results positive Hyperalgesia - Avoid opiates - Continue outpatient medications with Effexor - Advised to seek physicians who practice OMT - patient was keen to try Mild asthma/allergies - Continue montelukast VTE Prophylaxis - Lovenox Code - Full Total Time Spent: Less than 30 minutes This includes examination of the patient, discharge planning, medication reconciliation, and communication with other providers. Discharge Instructions Please refer to the electronic Patient Visit Report (Discharge Instructions) for additional information. Additional Copies To Bhaskar Noble D.O. Resident Tracking Resident Involvement: Resident Care Provided Care Provided: [facility]
[2017-04-07] MEDS ORDERED: CEFTRIAXONE SOD INJ 1,000 MG in DEXTROSE 5% 50ML 50 ML IV SCH (02:00)
[2017-04-11 21:27] LABS: C.PSITTACI IgA <1:16 (<1:16); C.PSITTACI IgM <1:10 (<1:10); CHLAMYDIA PSITTACI IgG <1:64 (<1:64); HISTOPLASMA AB Negative (Negative); LEAD BLOOD LESS THAN 1 MCG/DL (0-9)
== END 2017-04-06 17:30 | disposition home or self-care (01) ==
LOC: ENRESERVTM → ENRESERVDT → C.EDB 18:45 → C.MS2W 22:34
PROVIDERS: ADMIT Hospitalist; ATTEND Family Medicine
DX: I74.2 Embolism and thrombosis of arteries of the upper extremities (principal); L03.113 Cellulitis of right upper limb; G89.18 Other acute postprocedural pain; R59.1 Generalized enlarged lymph nodes; I25.10 Atherosclerotic heart disease of native coronary artery without angina pectoris; J45.909 Unspecified asthma, uncomplicated; Z87.442 Personal history of urinary calculi; Z79.01 Long term (current) use of anticoagulants; Z87.820 Personal history of traumatic brain injury; Z86.711 Personal history of pulmonary embolism; Z87.01 Personal history of pneumonia (recurrent); Z83.3 Family history of diabetes mellitus; Z82.49 Family history of ischemic heart disease and other diseases of the circulatory system; Z84.1 Family history of disorders of kidney and ureter; Z82.5 Family history of asthma and other chronic lower respiratory diseases